=== PATIENT | female | born 1980 | race Two or more races ===

== ENCOUNTER 2024-02-26 22:06 | Inpatient (IN) | payer MEDICAID, OTHER ==
[~2024-02-26] VITALS: Ht 144.8 cm; Wt 100.9 kg
[2024-02-26] MEDS: LORazepam 2MG/ML-1ML VIAL ONE ×2 (22:17→22:30)
[2024-02-26 22:20] VITALS: PULSE 92; RESP 19; O2SAT 92
[2024-02-26] MEDS: LORazepam 2MG/ML-1ML VIAL IV ONE ×2 (22:29→22:30)
[2024-02-26] MEDS: levETIRAcetam 1000 mg/100ml 100 ML IV ONE (22:29)
[2024-02-26] MEDS: SODIUM CHLORIDE 0.9% 1,000 ML IV ONE (22:29)
[2024-02-26] MEDS: PHENYTOIN SODIUM 50 MG/ML 2ML VIAL IV ONE (22:42)
[2024-02-26] MEDS: PHENYTOIN SODIUM 50 MG/ML 5ML INJ VIAL IV ONE (22:42)
[2024-02-26 22:44] LABS: Basophils # (auto) 0.1 10 ^3/uL (0-0.2); Basophils % (auto) 0.7 % (0.0-2.0); Eosinophils # (auto) 0.1 10 ^3/uL (0-0.8); Eosinophils % (auto) 1.6 % (0.0-7.0); Hematocrit 30.4 % (36.0-46.0); Hemoglobin 9.9 g/dL (12.2-16.2); Lymphocytes % (auto) 25.5 % (10.0-50.0); Mean Corpuscular Hemoglobin 32.4 pg (28.0-32.0); Mean Corpuscular Hgb Conc. 32.4 g/dL (32.0-36.0); Mean Corpuscular Volume 99.9 fL (80.0-100.0); Monocytes # (auto) 0.5 10 ^3/uL (0-1.3); Monocytes % (auto) 5.9 % (0.0-12.0); Neutrophils # (auto) 5.1 10 ^3/uL (1.6-8.6); Neutrophils % (auto) 66.3 % (37.0-80.0); Red Blood Cells 3.04 10^6/uL (4.0-5.20); Red Cell Distribution Width 17.1 % (11.8-14.3); White Blood Cell 7.7 10^3/uL (4.4-10.8)
[2024-02-26] MEDS: PHENobarbital SODIUM 130 MG/ML VL IV ONE (23:00)
[2024-02-26] MEDS: PHENYTOIN IV DILANTIN 1,000 MG in SODIUM CHL 0.9% 250 ML IV ONE (23:00)
[2024-02-26 23:02] LABS: Alanine Aminotransferase 22 U/L (7-40); Albumin 4.5 g/dL (3.2-4.8); Alkaline Phosphatase 53 U/L (46-116); Anion Gap 10 (5-15); Aspartate Aminotransferase 25 U/L (13-40); Calcium 9.2 mg/dL (8.7-10.4); Carbon Dioxide 23 mmol/L (20-30); Chloride 104 mmol/L (98-107); Glucose 111 mg/dL (74-106); Potassium 3.2 mmol/L (3.5-5.1); Sodium 137 mmol/L (136-145)
[2024-02-26 23:03] LABS: Bilirubin, Total 0.4 mg/dL (0.2-1.0); Total Protein 7.4 g/dL (5.7-8.2)
[2024-02-26 23:05] LABS: BUN/Creatinine Ratio 5.9 (10.0-20.0); Blood Urea Nitrogen < 5 mg/dL (9-23)
[2024-02-26 23:06] LABS: INR 1.02 (0.9-1.15); Partial Thromboplastin Time < 20.0 SEC (24.5-34.5); Prothrombin Time 10.8 sec (9.3-11.8)
[2024-02-26] MEDS: PHENobarbital SODIUM 130 MG/ML VL ONE (23:27)
[2024-02-26] MEDS: PHENobarbital SODIUM 65 MG/ML VL ONE (23:27)
[2024-02-26 23:29] LABS: Urine Bacteria None Seen /hpf (None Seen)
[2024-02-26 23:36] LABS: Urine Blood Negative /uL (Negative); Urine Clarity Clear (Clear); Urine Color Colorless (Yellow); Urine Protein, UAD TRACE (Negative); Urine Specific Gravity 1.008 (1.001-1.035); Urine Urobilinogen Normal (Negative); Urine WBC 15 /hpf (0 - 5); Urine pH 6.5 (5.0-9.0)
[2024-02-27] MEDS ORDERED: LORazepam 2MG/ML-1ML VIAL IV PRN (00:45)
[2024-02-27] MEDS: cefTRIAXone 1GM/50ML D5W 50 ML IV ONE (01:26)
[2024-02-27] MEDS ORDERED: HYDROcodone-ACET 5/325MG TAB PO PRN (02:45)
[2024-02-27] MEDS ORDERED: MORPHINE SULFATE INJ 2 MG/ml SYRG IV PRN (02:45)
[2024-02-27] MEDS ORDERED: POTASSIUM CHLORIDE 40 MEQ, LIDOCAINE 1% (LOCAL ANESTH.) 4 ML in SODIUM CHL 0.9% 250 ML IV ONE (02:45)
[2024-02-27] MEDS ORDERED: DOCUSATE SOD 100 MG CAP PO PRN (02:45)
[2024-02-27] MEDS ORDERED: ONDANSETRON HCL 4 MG/2 ML VIAL IV PRN (02:45)
[2024-02-27] MEDS ORDERED: NITROGLYCERIN 0.4 MG SL TAB SL PRN (02:45)
[2024-02-27] MEDS: SODIUM CHLORIDE 0.9% 1,000 ML IV SCH (03:20)
[2024-02-27] MEDS: POTASSIUM CHL 20MEQ/100ML 100 ML IV SCH (03:21)
[2024-02-27 07:30] VITALS: PULSE 88; RESP 18; O2SAT 98
[2024-02-27] MEDS: ENOXAPARIN SOD 40 MG/0.4 ML SYRINGE SC SCH (10:10)
[2024-02-27] MEDS: levETIRAcetam 1000 mg/100ml 100 ML IV SCH (10:10)
[2024-02-27 16:14] LABS: Amphetamine Screen, Urine Neg (NEGATIVE); Barbiturate Scree,Urine Pos (NEGATIVE); Benzodiazephine Screen, Urine Pos (NEGATIVE); Cocaine Screen, Urine Neg (NEGATIVE); Opiate Scree,Urine Neg (NEGATIVE); Phencyclidine Screen, Urine Neg (NEGATIVE)
[2024-02-27 16:15] LABS: Cannabinoid Screen, Urine Neg (NEGATIVE)
[2024-02-27] MEDS: ACETAMINOPHEN 325 MG TAB PO PRN (17:15)
[2024-02-28] VITALS (7 sets, daily range): BP systolic 91–121; BP diastolic 55–68; PULSE 70–82; RESP 15–20; TEMP 97.9–99.1; O2SAT 92–100
[2024-02-28 06:34] LABS: Alanine Aminotransferase 18 U/L (7-40); Alkaline Phosphatase 56 U/L (46-116); Anion Gap 6 (5-15); Aspartate Aminotransferase 27 U/L (13-40); Bilirubin, Total 0.7 mg/dL (0.2-1.0); Calcium 8.3 mg/dL (8.5-10.1); Carbon Dioxide 27 mmol/L (20-30); Chloride 104 mmol/L (98-107); Glucose 88 mg/dL (74-106); Sodium 137 mmol/L (136-145); Total Protein 6.4 g/dL (5.7-8.2)
[2024-02-28 06:41] LABS: Basophils # (auto) 0 10 ^3/uL (0-0.2); Basophils % (auto) 0.5 % (0.0-2.0); Eosinophils # (auto) 0.1 10 ^3/uL (0-0.8); Eosinophils % (auto) 1.7 % (0.0-7.0); Hematocrit 28.1 % (36.0-46.0); Hemoglobin 9.3 g/dL (12.2-16.2); Lymphocytes # (auto) 1.3 10 ^3/uL (0.4-5.4); Lymphocytes % (auto) 16.7 % (10.0-50.0); Mean Corpuscular Hemoglobin 32.4 pg (28.0-32.0); Mean Corpuscular Hgb Conc. 33.1 g/dL (32.0-36.0); Mean Corpuscular Volume 97.7 fL (80.0-100.0); Monocytes # (auto) 0.4 10 ^3/uL (0-1.3); Monocytes % (auto) 5.6 % (0.0-12.0); Neutrophils % (auto) 75.5 % (37.0-80.0); Nucleated Red Blood Cells % 0.1 %; Red Blood Cells 2.88 10^6/uL (4.0-5.20)
[2024-02-28 06:49] LABS: BUN/Creatinine Ratio 7.5 (10.0-20.0); Blood Urea Nitrogen < 5 mg/dL (9-23)
[2024-02-29] VITALS (7 sets, daily range): BP systolic 94–125; BP diastolic 50–67; PULSE 57–76; RESP 16–19; TEMP 36.7; O2SAT 95–100
[2024-02-29] MEDS: POTASSIUM CHL 20 Meq TABLET PO ONE (10:12)
[2024-02-29] MEDS: POTASSIUM CHLORIDE 20 MEQ, LIDOCAINE 1% (LOCAL ANESTH.) 2 ML in SODIUM CHL 0.9% 100 ML IV ONE (12:12)
== END 2024-02-29 19:15 | disposition home or self-care (01) | DRG 53 ==
LOC: ER 22:06 → EDBD 22:06 → TELE 02-27 02:49 → TELE-EAST 02-27 20:24
PROVIDERS: ADMIT Nurse Practitioner Family; ATTEND Internal Medicine
DX: G40.201 Localization-related (focal) (partial) symptomatic epilepsy and epileptic syndromes with complex partial seizures, not intractable, with status epilepticus (principal); E87.6 Hypokalemia; N39.0 Urinary tract infection, site not specified; F09 Unspecified mental disorder due to known physiological condition; Z98.2 Presence of cerebrospinal fluid drainage device; Z87.820 Personal history of traumatic brain injury; Z79.899 Other long term (current) drug therapy
CPT/HCPCS: 36415; 80053; 80307; 81001; 82542; 83735; 83880; 84484; 84702; 85025; 85610; 85730; 87086; 93005; 96361; 96365; 96367; 96368; 96375; 99291; G0378; J2001; J3480

== ENCOUNTER 2024-12-26 04:48 | Inpatient (IN) | payer MEDICAID ==
[~2024-12-26] VITALS: Ht 167.6 cm; Wt 94.0 kg
[2024-12-26] VITALS (44 sets, daily range): BP systolic 84–116; BP diastolic 50–75; PULSE 75–111; RESP 14–19; TEMP 98.2–98.8; O2SAT 91–100
[2024-12-26] MEDS: SUCCINYLCHOLINE CHLORIDE 20 MG/ML 10ML VIAL IV ONE (04:55)
[2024-12-26] MEDS: ETOMIDATE (2MG/ML) 20ML VIAL IV ONE (04:55)
[2024-12-26] MEDS: PROPOFOL 100 ML IV SCH (05:00)
[2024-12-26] MEDS: LORazepam 2MG/ML-1ML VIAL IV ONE (05:32)
[2024-12-26] MEDS: levETIRAcetam 1000 mg/100ml 100 ML IV ONE (05:33)
[2024-12-26 05:37] LABS: Basophils # (auto) 0 10 ^3/uL (0-0.2); Basophils % (auto) 0.5 % (0.0-2.0); Eosinophils # (auto) 0.1 10 ^3/uL (0-0.8); Eosinophils % (auto) 1.7 % (0.0-7.0); Hematocrit 27.2 % (36.0-46.0); Hemoglobin 8.9 g/dL (12.2-16.2); Lymphocytes # (auto) 1.6 10 ^3/uL (0.4-5.4); Mean Corpuscular Hemoglobin 29.2 pg (28.0-32.0); Mean Corpuscular Hgb Conc. 32.8 g/dL (32.0-36.0); Monocytes # (auto) 0.4 10 ^3/uL (0-1.3); Monocytes % (auto) 6.6 % (0.0-12.0); Neutrophils # (auto) 3.9 10 ^3/uL (1.6-8.6); Neutrophils % (auto) 64.2 % (37.0-80.0); Nucleated Red Blood Cells % 0.1 %; Platelet Count (auto) 302 10^3/uL (140-450); Red Blood Cells 3.05 10^6/uL (4.0-5.20); Red Cell Distribution Width 20.8 % (11.8-14.3)
--- NOTE | 2024-12-26 05:46 | ED.PDOC ---
History of Present Illness HPI Comments This is a 44-year-old, obese female, with a history of seizures and TBI s/p craniotomy and HIDE STRETCHER HAND shunt placement, is BIBA for c/o seizure today. Per EMS report, patient has been seizing for the past 20 minutes, without any interruption, amidst administration of 10 mg of Versed via 20 gauge to right hand. Onset of seizure was reported by family to have been sudden unprovoked, this morning. Patient has been without her seizure medication for the past 2 days after running out. EMS notes on patient SpO2 of 80% on room air on scene. She was placed on 4 L O2, with SpO2 improvement to mid 90s range. . No further reported associated symptoms, signs of trauma, or incontinence. Further history is limited, due to patient's current condition and absence of family/sack lifter historians. Time Seen by MD: 04:48 Reviewed Notes: Nurses Notes, Senior Environmental Practice Leader Notes, Medications, Allergies Allergies: Coded Allergies: UNOBTAINABLE (Unverified , 02/26/24) Home Meds No Active Prescriptions or Reported Meds Information Source: Emergency Med Personnel Mode of Arrival: EMS Severity: Moderate Timing: Hours Duration: Minutes Prehospital treatment: 12 Lead EKG, Simplex Operator, Other (20 gauge to right hand, 10 mg Versed) Review of Systems: Unable to obtain Vital Signs Vital Signs Date Time Temp Pulse Resp B/P (MAP) Pulse Ox O2 Delivery O2 Flow Rate FiO2 12/26/24 08:31 107/69 12/26/24 08:04 98.6 87 25 100 98.6 12/26/24 07:15 Mechanical Ventilator+ 100 100 12/26/24 07:09 15 Physical Exam General: Patient is unresponsive, actively seizing Skin: Skin in warm, dry and intact without rashes or lesions. HEENT: The head is normocephalic and atraumatic. Conjunctivae are clear without exudates or hemorrhage. Sclera is non-icteric. Neck: Normal range of motion. No JVD. Cardiac: Regular rate Respiratory: No signs of respiratory distress. No Stridor. Extremities: Upper and lower extremities are atraumatic in appearance without deformity. Neurological: Patient is unresponsive, tonic-clonic like seizure activity noted Past Medical History PAST MEDICAL HISTORY: Seizures Past Medical History (Other): TBI status post craniotomy and HIDE STRETCHER HAND shunt Surgical History (Other): Craniotomy and HIDE STRETCHER HAND shunt POWER OPERATOR History: Unknown, Unobtainable Family History Family History: Unknown, Unobtainable Social History Smoker: Unknown, Unobtainable Alcohol: Unknown, Unobtainable Drugs: Unknown, Unobtainable Lives In: Home Was a procedure done? 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: Attending Physician Indication: Hypotension, Volume resuscitation Room prepared for procedure: Yes Rigging [employer] Controls Aircraft Mechanic performed hand hygien: Yes Maximal sterile barrier precau: Mask/Eye shield, Sterile gown, Sterlie gloves, Large sterlie drape Skin Preparation: Chlorhexidine gluconate Skin preparation completely dr: Yes Insertion site: Right, Femoral Central line catheter type: [id number]-gophtaym-[id number] dialysis Central line exchanged over a: Yes Antiseptic ointment applied to: Yes Post Assessment: Proper placement Informed consent obtained: No Risks/benefits/alt described: No Notes Central line placed by Dr. Taras Rodríguez Intubation Indication: Respiratory Insufficiency, Altered Mental Status Prep: Preoxygenation Pretreated with: Other (Propofol) Medicated with: Succinylcholine (100 mg), Other (20 mg of etomidate-) Differential Dx Considerations may include: Differential diagnosis considered includes but not limited to intracranial hemorrhage, stroke, head injury, seizure status/breakthrough, noncompliant with medications, metabolic disturbance, electrolyte imbalance, infection, substance intoxication, psychiatric cause, other systemic illness, other X-Ray, Labs, Meds, VS Vital Signs Date Time Temp Pulse Resp B/P (MAP) Pulse Ox O2 Delivery O2 Flow Rate FiO2 12/26/24 08:31 107/69 12/26/24 08:11 110/63 12/26/24 08:04 98.6 87 25 129/79 (96) 100 98.6 12/26/24 08:00 98.6 93 29 132/87 (102) 100 98.6 12/26/24 07:45 98.6 87 25 129/79 (96) 100 98.6 12/26/24 07:30 112/69 12/26/24 07:30 98.6 96 17 112/69 (83) 100 98.6 12/26/24 07:15 98.6 101 14 108/74 (85) 100 98.6 12/26/24 07:15 101 14 100 Mechanical Ventilator+ 100 100 12/26/24 07:12 111 16 108/65 (79) 100 100 12/26/24 07:09 111 Mechanical Ventilator+ 15 100 100 12/26/24 07:00 97 17 106/71 (83) 100 12/26/24 06:45 104 110/69 (83) 100 12/26/24 06:30 111 114/71 (85) 100 12/26/24 06:30 114/71 12/26/24 06:30 114/71 12/26/24 06:30 114/71 12/26/24 06:15 114 115/77 (90) 100 12/26/24 06:00 114 131/80 (97) 100 12/26/24 05:45 108 18 120/80 (93) 100 12/26/24 05:30 109/72 12/26/24 05:30 112 19 109/72 (84) 100 12/26/24 05:20 122/86 12/26/24 05:15 119 29 122/86 (98) 100 12/26/24 05:15 122/86 12/26/24 05:10 108/65 12/26/24 05:05 108/65 12/26/24 05:00 108/65 12/26/24 05:00 108/65 12/26/24 04:59 117 21 108/65 (79) 97 12/26/24 04:54 130 27 160/125 (137) 82 12/26/24 04:48 98.3 131 20 90/70 (77) 95 98.3 Lab Test 12/26/24 06:18 12/26/24 06:13 12/26/24 06:04 12/26/24 05:08 Range/Units Urine Color Light-yellow Yellow Urine Clarity Clear Clear Urine pH 6.0 5.0-9.0 Urine Specific [place] 1.013 1.001-1.035 Urine Protein 1+ H Negative Urine Ketones 1+ H Negative Urine Blood 1+ H Negative /uL Urine Nitrite Negative Negative Urine Bilirubin Negative Negative Urine Urobilinogen Normal Negative mg/dL Urine Leukocyte Esterase Negative Negative /uL Urine RBC 1 0 - 4 /hpf Urine Microscopic WBC 5 0-5 /HPF Urine Squamous Epithelial Cells Few <5 /hpf Urine Bacteria None seen None Seen /hpf Urine Mucus Few None Seen Urine Glucose Normal Normal mg/dL Urine Opiates Screen Neg NEGATIVE Urine Fentanyl Screen Neg NEGATIVE Urine Barbiturates Screen Neg NEGATIVE Urine Phencyclidine Screen Neg NEGATIVE Urine Amphetamines Screen Neg NEGATIVE Urine Benzodiazepines Screen Pos NEGATIVE Urine Cocaine Screen Neg NEGATIVE Urine Cannabinoids Screen Neg NEGATIVE Blood Gas Specimen Type Arterial Blood Gas Sample Site Right radial Blood Gas Patient Temperature 37.0 Arterial Blood Date Drawn [id number] Arterial Blood pH 7.454 H 7.350-7.450 Arterial Blood Partial Pressure CO2 34.0 32.0-45.0 mmHg Arterial Blood Partial Pressure O2 207.9 H 83.0-108.0 mmHg Arterial Blood HCO3 23.3 21.0-28.0 mmol/L Arterial Blood Oxygen Saturation 99.6 H 94.0-98.0 % Arterial Blood Base Excess -0.3 -2.0-3.0 mmol/L Arterial Blood Oxyhemoglobin 98.7 H 94.0-98.0 % Arterial Blood Carboxyhemoglobin 0.4 L 0.5-1.5 % Arterial Blood Methemoglobin 0.5 0.0-1.5 % [place] Test Modified Blood Gas Total Hemoglobin 9.20 L 12.0-16.0 g/dL Blood Gas Set Respiration Rate 16.0 Blood Gas Modality Vent - ac Blood Gas Spontaneous Rate 23 FiO2 % 100.0 Blood Gas Tidal Volume 450.0 Blood Gas PEEP or CPAP 5.0 Troponin I High Sensitivity 4 < 3 L </=34 ng/L White Blood Count 6.0 4.4-10.8 10^3/uL Red Blood Count 3.05 L 4.0-5.20 10^6/uL Hemoglobin 8.9 L 12.2-16.2 g/dL Hematocrit 27.2 L 36.0-46.0 % Mean Corpuscular Volume 89.0 80.0-100.0 fL Mean Corpuscular Hemoglobin 29.2 28.0-32.0 pg Mean Corpuscular Hemoglobin Concent 32.8 32.0-36.0 g/dL Red Cell Distribution Width 20.8 H 11.8-14.3 % Platelet Count 302 140-450 10^3/uL Mean Platelet Volume 7.6 6.9-10.8 fL Neutrophils (%) (Auto) 64.2 37.0-80.0 % Lymphocytes (%) (Auto) 27.0 10.0-50.0 % Monocytes (%) (Auto) 6.6 0.0-12.0 % Eosinophils (%) (Auto) 1.7 0.0-7.0 % Basophils (%) (Auto) 0.5 0.0-2.0 % Neutrophils # (Auto) 3.9 1.6-8.6 10 ^3/uL Lymphocytes # (Auto) 1.6 0.4-5.4 10 ^3/uL Monocytes # (Auto) 0.4 0-1.3 10 ^3/uL Eosinophils # (Auto) 0.1 0-0.8 10 ^3/uL Basophils # (Auto) 0 0-0.2 10 ^3/uL Nucleated Red Blood Cells 0.1 % Sodium Level 140 136-145 mmol/L Potassium Level 3.5 3.5-5.1 mmol/L Chloride Level 104 98-107 mmol/L Carbon Dioxide Level 21 20-31 mmol/L Anion Gap 15 5-15 Blood Urea Nitrogen 6 L 9-23 mg/dL Creatinine 0.82 0.550-1.02 mg/dL Glomerular Filtration Rate Calc 90 >90 mL/min BUN/Creatinine Ratio 7.3 L 10.0-20.0 Serum Glucose 93 74-106 mg/dL Calcium Level 9.4 8.7-10.4 mg/dL Total Bilirubin 0.3 0.2-1.0 mg/dL Aspartate Amino Transferase (AST) 21 13-40 U/L Alanine Aminotransferase (ALT) 19 7-40 U/L Alkaline Phosphatase 59 46-116 U/L Total Protein 7.6 5.7-8.2 g/dL Albumin 4.8 3.2-4.8 g/dL Plasma/Serum Blood Alcohol < 3.0 <10 mg/dL Current Medications Medications (Trade) Dose Ordered Sig/Parth Route Start Time Stop Time Status Last Admin Levetiracetam 100 ml @ 400 mls/hr ONCE ONCE IV 12/26/24 05:30 12/26/24 05:44 DC 12/26/24 05:33 Lorazepam (Ativan Inj) 2 mg ONCE ONCE IV 12/26/24 05:30 12/26/24 05:31 DC 12/26/24 05:32 Midazolam HCl 50 ml @ 1 mls/hr Q24H IV 12/26/24 06:00 12/26/24 08:31 Propofol 100 ml @ 2.73 mls/hr Q24H IV 12/26/24 06:00 12/26/24 08:11 Etomidate 20 mg ONCE ONCE IV 12/26/24 07:15 12/26/24 07:16 DC 12/26/24 04:55 Succinylcholine Chloride (Quelicin) 130 mg ONCE ONCE IV 12/26/24 07:15 12/26/24 07:16 DC 12/26/24 04:55 Time of 1ST Reevaluation: 05:28 Reevaluation 1ST: Unchanged Patient Education/Counseling: Other (Patient intubated) Family Education/Counseling: No Family Present Departure 1 Departure Time of Disposition: 08:35 (Patient presented in status epilepticus. Patient was intubated for airway protection central line was placed with Dr. Soler last seen. We will admit patient for further workup and expert consultation) Impression: Primary Impression: Status epilepticus Disposition: ADMITTED INPATIENT Admit to: ICU Condition: Critical e-Prescriptions No Active Prescriptions or Reported Meds Comments 44-year-old female who presented to the emergency department in status epilepticus, had received 10 mg of Versed by EMS. Patient intubated for airway protection. Keppra, additional Ativan, Versed drip initiated in the emergency department. Patient admitted to hospitalist service for further treatment, evaluation and monitoring. Extensive evaluation was performed in attempt to identify or rule out: (See differential diagnosis section) The following tests were ordered, and results were reviewed by me and discussed with patient: (See diagnostic results section) The following test were independently interpreted by me: I reviewed and agreed with the following test results read by other providers: N/A I reviewed the following notes from the pt's past medical encounters: February 27, 2024 encounter for seizure disorder Additional information was gathered from interviewing the following independent historians: N/A Discussion of management or test interpretation with external physician/other qualified health transitional care manager: N/A Addressed an acute or chronic illness that poses a threat to life or bodily function: Status epilepticus Decision regarding hospitalization or escalation of hospital level of care: Risk and benefits of admission for further treatment of patient's condition was considered. Due to patient's current clinical condition, high risk of decline and poor outcome if discharged and need for further inpatient management and monitoring, patient will be admitted to the hospital. Drug therapy requiring intensive monitoring for toxicity: IV Keppra, Parenteral controlled substances: IV Ativan, IV Versed, IV etomidate, IV succinylcholine Decision regarding elective major surgery with identified patient or procedure risk factors: N/A Decision regarding emergency major surgery: N/A Decision not to resuscitate or to de-escalate care because of poor prognosis: N/A Diagnosis or treatment significantly limited by social determinants of health: N/A Critical Care Note Critical Care Time?: Yes (35 min-critical care time only) Critical care comment: Due to a high probability of clinically significant, life threatening dete rioration, the patient required my highest level of preparedness to intervene emergently and I personally spent this critical care time directly and personally managing the patient. This critical care time included obtaining a history; examining the patient; pulse oximetry; ordering and review of studies; arranging urgent treatment with development of a management plan; evaluation of patient's response to treatment; frequent reassessment; and, discussions with other providers. This critical care time was performed to assess and manage the high probability of imminent, life-threatening deterioration that could result in multi-organ f ailure. It was exclusive of separately billable procedures and treating other patients and teaching time. Please see my other sections and the rest of the note for further information on patient assessment and treatment. Stability Stability form required: No Heart Score Heart Score: Heart Score Response (Comments) Value History N/A 0 EKG N/A 0 Age N/A 0 Risk Factors N/A 0 Troponin N/A 0 Total 0 I personally scribed for OSWALDO CROOKS MD ([email or web address]) on 12/26/24 at 05:46. Electronically submitted by Attila Hilario ([email or web address]). OSWALDO CROOKS MD December 26, 2024 05:46 TARAS RODRÍGUEZ MD December 26, 2024 08:35
[2024-12-26 05:53] LABS: Alanine Aminotransferase 19 U/L (7-40); Alkaline Phosphatase 59 U/L (46-116); Anion Gap 15 (5-15); Aspartate Aminotransferase 21 U/L (13-40); BUN/Creatinine Ratio 7.3 (10.0-20.0); Bilirubin, Total 0.3 mg/dL (0.2-1.0); Calcium 9.4 mg/dL (8.7-10.4); Carbon Dioxide 21 mmol/L (20-31); Chloride 104 mmol/L (98-107); Glucose 93 mg/dL (74-106); Potassium 3.5 mmol/L (3.5-5.1); Sodium 140 mmol/L (136-145); Total Protein 7.6 g/dL (5.7-8.2)
[2024-12-26 06:05] LABS: Albumin 4.8 g/dL (3.2-4.8); Blood Alcohol < 3.0 mg/dL (<10); Blood Urea Nitrogen 6 mg/dL (9-23)
[2024-12-26 06:19] LABS: Base Excess -0.3 mmol/L (-2.0-3.0)
[2024-12-26 06:24] LABS: Urine Bacteria None Seen /hpf (None Seen)
[2024-12-26] MEDS: MIDAZOLAM DRIP 50 mg/50mL 50 ML IV SCH (06:30)
[2024-12-26 06:32] LABS: Urine Blood 1+ /uL (Negative); Urine Clarity Clear (Clear); Urine Color Light-Yellow (Yellow); Urine Mucus FEW (None Seen); Urine Protein, UAD 1+ (Negative); Urine Specific Gravity 1.013 (1.001-1.035); Urine Squamous Epithelial Cell FEW /hpf (<5); Urine Urobilinogen Normal (Negative); Urine WBC 5 /HPF (0-5)
[2024-12-26 06:50] LABS: Amphetamine Screen, Urine Neg (NEGATIVE); Barbiturate Scree,Urine Neg (NEGATIVE); Benzodiazephine Screen, Urine Pos (NEGATIVE); Cannabinoid Screen, Urine Neg (NEGATIVE); Cocaine Screen, Urine Neg (NEGATIVE); Opiate Scree,Urine Neg (NEGATIVE); Phencyclidine Screen, Urine Neg (NEGATIVE)
[2024-12-26] MEDS: fentaNYL Drip 2500mCg/250mlNS 250 ML IV SCH (08:30)
--- NOTE | 2024-12-26 08:48 | DVH ---
EXAM: XY CHEST XRAY 1 VIEW Indication: Status post intubation Technique: Single frontal view of the chest was obtained Comparison: None FINDINGS: Lines and Tubes: Endotracheal tube projects approximately 1.7 cm above level devonte. Enteric tube tip projects over the expected region of the stomach. Lungs: Low lung volumes with interstitial opacities. Pleura: No effusion. No pneumothorax. Cardiomediastinal contours: Unremarkable Bones: No acute osseous abnormality. IMPRESSION: Endotracheal tube projects approximately 1.7 cm above level devonte. Enteric tube tip projects over th e expected region of the stomach.
--- NOTE | 2024-12-26 12:58 | DVH ---
EXAM: CT HEAD WITHOUT CONTRAST HISTORY: Seizure COMPARISON: None TECHNIQUE: Axial images of the head were obtained and reformatted in coronal and sagittal planes. All CT scans at this medical facility are performed using dose modulation techniques as appropriate t o a performed exam including the following: Automated exposure control was utilized; adjustment of th e MA and/or KV according to patient size; and use of iterative reconstruction technique. CT Dose: CTDI volume is 65 mGy. Dose-length product is 1300 mGy*cm FINDINGS: There are postsurgical changes with left frontal craniotomy. There is a ventricular shunt catheter wi th right frontal approach with the tip in the frontal horn of the right lateral ventricle. There is n o hydrocephalus or significant extra-axial fluid collection. The gliotic changes along the shunt tra ct. There is encephalomalacia in the right frontal and temporal lobes which May relate to chronic infarct . There are patchy hypodense areas in the supratentorial white matter likely related to chronic small -vessel ischemic changes. There is no evidence of acute intracranial hemorrhage, mass, mass effect midline shift. There is mild mucosal thickening in the maxillary and ethmoid sinuses. The mastoid air cells are ann marie ar. The calvarium is intact. IMPRESSION: 1. No acute intracranial process. 2. Encephalomalacia in the right frontal and temporal lobes May relate to chronic infarct. 3. Ventricular shunt catheter with the tip in the frontal horn of the right lateral ventricle. There is no hydrocephalus or significant extra-axial fluid collection. HS:Y
[2024-12-26] MEDS ORDERED: ACETAMINOPHEN 650 MG RECT SUPP PR PRN (14:30)
[2024-12-26] MEDS ORDERED: POTASSIUM CHL 20MEQ/100ML 100 ML IV ONE (14:30)
[2024-12-26] MEDS ORDERED: LORazepam 2MG/ML-1ML VIAL IV PRN (14:30)
[2024-12-26] MEDS ORDERED: ONDANSETRON HCL 4 MG/2 ML VIAL IV PRN (14:30)
--- NOTE | 2024-12-26 14:52 | DVHHP2 ---
History of Present Illness Reason for Visit: Status epilepticus History of Present Illness The patient is a 44-year-old female with past medical history of seizure and traumatic brain injury presented to [facility] ED for evaluation of seizures activity. As reported by EMS, patient has been seizing for the past 20 minutes without any interruption, desaturating on room air at 80% and was placed on oxygen 4 L per minute via nasal cannula, given 10 mg of Versed IV, O2 saturation improved to 91%. Patient has been without her seizure medication for the past 2 days after running out. Patient was seen and evaluated in the ED and was subsequently intubated for airway protection. Laboratory data shows WBC 6.0, hemoglobin 8.9, hematocrit 27.2, platelets 302, sodium 140, potassium 3.5, BUN 6, creatinine 0.82, glucose 93, troponin 9, blood pressure 103/59, heart rate 100, temperature 99.1 F, O2 saturation 98% on ventilator. Patient was started on IV Keppra, please see medication orders section in the computer. On my assessment, family member at bedside, patient remains fully intubated, no diaphoresis, no vomiting, no fever, no chills. Patient was admitted for further evaluation and medical management. Past Medical History Seizures, Traumatic brain injury Past Surgical History TBI status post craniotomy and TRANSFER TABLE OPERATOR shunt Craniotomy and TRANSFER TABLE OPERATOR shunt Family History Reviewed, noncontributory to the management of this case. Past Social History The patient lives at home, denies smoking, alcohol or illicit drugs abuse. Review of Systems Constitutional: Yes: Weakness; No: Fever, Chills, Sweats, Malaise, Other Eyes: No: Pain, Vision change, Conjunctivae inflammation, Eyelid inflammation, Other, Redness ENT: No: Ear pain, Ear discharge, Nose pain, Nose discharge, Nose congestion, Mouth pain, Mouth swelling, Throat pain, Throat swelling, Other Respiratory: No: Cough, Dry, Shortness of breath, SOB with excertion, Wheezing, Hemoptysis, Pleuritic Pain, Sputum, Wheezing, Other Cardiovascular: No: Chest Pain, Palpitations, Orthopnea, Paroxysmal Noc. Dyspnea, Edema, Lt Headedness, Other Gastrointestinal: No: Nausea, Vomiting, Abdominal Pain, Diarrhea, Constipation, Melena, Hematochezia, Other Genitourinary: No Dysuria, No Frequency, No Incontinence, No Hematuria, No Retention; Other (Morgan catheter in place) Musculoskeletal: No: other, neck pain, shoulder pain, arm pain, back pain, hand pain, leg pain, foot pain Skin: No: Rash, Lesions, Jaundice, Bruising, Other Neurological: Seizures; No: Weakness, Numbness, Incoordination, Change in speech, Confusion, Other Allergies: Coded Allergies: NO KNOWN ALLERGIES (Unverified , 12/26/24) Medications Current Medications Medications Dose Ordered Sig/Parth Route Start Time Stop Time Status Last Admin Dose Admin Midazolam HCl 50 ml @ 1 mls/hr Q24H IV 12/26/24 06:00 12/26/24 12:17 15 MLS/HR Propofol 100 ml @ 2.73 mls/hr Q24H IV 12/26/24 06:00 12/26/24 11:01 27.3 MLS/HR Fentanyl Citrate 250 ml @ 2.5 mls/hr Q24H IV 12/26/24 08:30 Levetiracetam 100 ml @ 400 mls/hr BID IV 12/26/24 22:00 Lorazepam 1 mg Q2HP PRN IV 12/26/24 14:30 Sodium Chloride 10 ml Q8HR IV 12/26/24 22:00 Ondansetron HCl 4 mg Q4HP PRN IV 12/26/24 14:30 Acetaminophen 650 mg Q6HP PRN MA 12/26/24 14:30 Exam Vital Signs Vital Signs Date Time Temp Pulse Resp B/P (MAP) Pulse Ox O2 Delivery O2 Flow Rate FiO2 12/26/24 12:17 100/60 12/26/24 12:00 99.1 104 19 98 99.1 12/26/24 10:05 40 12/26/24 07:15 Mechanical Ventilator+ 12/26/24 07:09 15 General Appearance: Other (Altered level of consciousness) HEENT: Atraumatic, PERRLA, EOMI, Mucous membr. moist/pink Respiratory: Normal air movement, Other (Fully intubated) Cardiovascular: Regular rate, Normal S1, Normal S2, No murmurs Abdominal: Normal bowel sounds, Soft, No tenderness, No hepatospenomegaly, No masses Extremities: No clubbing, No cyanosis, No edema, Normal pulses, No tenderness/swelling Skin: No rashes, No breakdown, No significant lesion Neuro: Other (Altered level of consciousness) Psych/Mental Status: Other (Unobtainable) Labs/Xrays Labs Test 12/26/24 08:40 12/26/24 06:18 12/26/24 06:13 12/26/24 05:08 Range/Units Troponin I High Sensitivity 9 </=34 ng/L Urine Color Light-yellow Yellow Urine Clarity Clear Clear Urine pH 6.0 5.0-9.0 Urine Specific [place] 1.013 1.001-1.035 Urine Protein 1+ H Negative Urine Ketones 1+ H Negative Urine Blood 1+ H Negative /uL Urine Nitrite Negative Negative Urine Bilirubin Negative Negative Urine Urobilinogen Normal Negative mg/dL Urine Leukocyte Esterase Negative Negative /uL Urine RBC 1 0 - 4 /hpf Urine Microscopic WBC 5 0-5 /HPF Urine Squamous Epithelial Cells Few <5 /hpf Urine Bacteria None seen None Seen /hpf Urine Mucus Few None Seen Urine Glucose Normal Normal mg/dL Urine Opiates Screen Neg NEGATIVE Urine Fentanyl Screen Neg NEGATIVE Urine Barbiturates Screen Neg NEGATIVE Urine Phencyclidine Screen Neg NEGATIVE Urine Amphetamines Screen Neg NEGATIVE Urine Benzodiazepines Screen Pos NEGATIVE Urine Cocaine Screen Neg NEGATIVE Urine Cannabinoids Screen Neg NEGATIVE Blood Gas Specimen Type Arterial Blood Gas Sample Site Right radial Blood Gas Patient Temperature 37.0 Arterial Blood Date Drawn [id number] Arterial Blood pH 7.454 H 7.350-7.450 Arterial Blood Partial Pressure CO2 34.0 32.0-45.0 mmHg Arterial Blood Partial Pressure O2 207.9 H 83.0-108.0 mmHg Arterial Blood HCO3 23.3 21.0-28.0 mmol/L Arterial Blood Oxygen Saturation 99.6 H 94.0-98.0 % Arterial Blood Base Excess -0.3 -2.0-3.0 mmol/L Arterial Blood Oxyhemoglobin 98.7 H 94.0-98.0 % Arterial Blood Carboxyhemoglobin 0.4 L 0.5-1.5 % Arterial Blood Methemoglobin 0.5 0.0-1.5 % Edmond Test Modified Blood Gas Total Hemoglobin 9.20 L 12.0-16.0 g/dL Blood Gas Set Respiration Rate 16.0 Blood Gas Modality Vent - ac Blood Gas Spontaneous Rate 23 FiO2 % 100.0 Blood Gas Tidal Volume 450.0 Blood Gas PEEP or CPAP 5.0 White Blood Count 6.0 4.4-10.8 10^3/uL Red Blood Count 3.05 L 4.0-5.20 10^6/uL Hemoglobin 8.9 L 12.2-16.2 g/dL Hematocrit 27.2 L 36.0-46.0 % Mean Corpuscular Volume 89.0 80.0-100.0 fL Mean Corpuscular Hemoglobin 29.2 28.0-32.0 pg Mean Corpuscular Hemoglobin Concent 32.8 32.0-36.0 g/dL Red Cell Distribution Width 20.8 H 11.8-14.3 % Platelet Count 302 140-450 10^3/uL Mean Platelet Volume 7.6 6.9-10.8 fL Neutrophils (%) (Auto) 64.2 37.0-80.0 % Lymphocytes (%) (Auto) 27.0 10.0-50.0 % Monocytes (%) (Auto) 6.6 0.0-12.0 % Eosinophils (%) (Auto) 1.7 0.0-7.0 % Basophils (%) (Auto) 0.5 0.0-2.0 % Neutrophils # (Auto) 3.9 1.6-8.6 10 ^3/uL Lymphocytes # (Auto) 1.6 0.4-5.4 10 ^3/uL Monocytes # (Auto) 0.4 0-1.3 10 ^3/uL Eosinophils # (Auto) 0.1 0-0.8 10 ^3/uL Basophils # (Auto) 0 0-0.2 10 ^3/uL Nucleated Red Blood Cells 0.1 % Sodium Level 140 136-145 mmol/L Potassium Level 3.5 3.5-5.1 mmol/L Chloride Level 104 98-107 mmol/L Carbon Dioxide Level 21 20-31 mmol/L Anion Gap 15 5-15 Blood Urea Nitrogen 6 L 9-23 mg/dL Creatinine 0.82 0.550-1.02 mg/dL Glomerular Filtration Rate Calc 90 >90 mL/min BUN/Creatinine Ratio 7.3 L 10.0-20.0 Serum Glucose 93 74-106 mg/dL Calcium Level 9.4 8.7-10.4 mg/dL Total Bilirubin 0.3 0.2-1.0 mg/dL Aspartate Amino Transferase (AST) 21 13-40 U/L Alanine Aminotransferase (ALT) 19 7-40 U/L Alkaline Phosphatase 59 46-116 U/L Total Protein 7.6 5.7-8.2 g/dL Albumin 4.8 3.2-4.8 g/dL Plasma/Serum Blood Alcohol < 3.0 <10 mg/dL PATIENT: BAYRON DILLARD ACCT: [id number] UNIT: [id number] : 1980 LOC: ER ROOM / BED: / AGE / SEX: 44 / F ADM STATUS: REG ER SERVICE 3 ORDERING PHYSICIAN: OSWALDO CROOKS MD PROCEDURE(s): HWOCT - HEAD WITHOUT CONTRAST REASON: Seizure ORDER NUMBER(s): [id number], ACCESSION NUMBER(s): [id number] EXAM: CT HEAD WITHOUT CONTRAST HISTORY: Seizure COMPARISON: None TECHNIQUE: Axial images of the head were obtained and reformatted in coronal and sagittal planes. All CT scans at this medical facility are performed using dose modulation techniques as appropriate to a performed exam including the following: Automated exposure control was utilized; adjustment of the MA and/or KV according to patient size; and use of iterative reconstruction technique. CT Dose: CTDI volume is 65 mGy. Dose-length product is 1300 mGy*cm FINDINGS: There are postsurgical changes with left frontal craniotomy. There is a ventricular shunt catheter with right frontal approach with the tip in the frontal horn of the right lateral ventricle. There is no hydrocephalus or significant extra-axial fluid collection. The gliotic changes along the shunt tract. There is encephalomalacia in the right frontal and temporal lobes which May relate to chronic infarct. There are patchy hypodense areas in the supratentorial white matter likely related to chronic small-vessel ischemic changes. There is no evidence of acute intracranial hemorrhage, mass, mass effect midline shift. There is mild mucosal thickening in the maxillary and ethmoid sinuses. The mastoid air cells are clear. The calvarium is intact. IMPRESSION: 1. No acute intracranial process. 2. Encephalomalacia in the right frontal and temporal lobes May relate to chronic infarct. 3. Ventricular shunt catheter with the tip in the frontal horn of the right lateral ventricle. There is no hydrocephalus or significant extra-axial fluid collection. ORDERING PHYSICIAN: OSWALDO CROOKS MD PROCEDURE(s): CXR1 - CHEST XRAY 1 VIEW REASON: Status post intubation ORDER NUMBER(s): [id number], ACCESSION NUMBER(s): [id number] EXAM: XY CHEST XRAY 1 VIEW Indication: Status post intubation Technique: Single frontal view of the chest was obtained Comparison: None FINDINGS: Lines and Tubes: Endotracheal tube projects approximately 1.7 cm above level devonte. Enteric tube tip projects over the expected region of the stomach. Lungs: Low lung volumes with interstitial opacities. Pleura: No effusion. No pneumothorax. Cardiomediastinal contours: Unremarkable Bones: No acute osseous abnormality. IMPRESSION: Endotracheal tube projects approximately 1.7 cm above level devonte. Enteric tube tip projects over the expected region of the stomach. Assessment/Plan Assessment/Plan Status epilepticus Generalized weakness Anemia, unspecified Acute respiratory failure Plan 1. Admit to intensive care unit 2. Breathing treatment 3. Pain control management 4. Management of fluids and electrolytes 5. Consultation for Neurology 6. Diagnostic tests head CT 7. DVT prophylaxis-on SCDs 8. Repeat labs CBC, CMP in a.m. 9. Continue with current medical management 10. Treatment plan discussed with patient and RN. Patient verbalized understanding. Plan discussed with: Patient, Other (RN) My Orders Orders - MICHELLE CAPONE DNP Procedure Category Date Status Time * Neurology Consult CONS 12/26/24 Transmitted 14:24 Levetiracetam 500 PHA 12/26/24 In Process Mg/100ml (Levetiraceta 22:00 Lorazepam 2mg/Ml Inj PHA 12/26/24 In Process (Ativan Inj) 14:30 Allergies USHA 12/26/24 Transmitted 14:24 Code Status CODE 12/26/24 Transmitted 14:24 Sodium Chloride Lock PHA 12/26/24 In Process (Saline Lock Ns) 22:00 Oxygen Per Hour RT 12/26/24 Transmitted 14:24 Ondansetron Hcl PHA 12/26/24 In Process (Zofran) 14:30 Fall Risk Precautions USHA 12/26/[address] 14:24 Complete Blood Count LAB 12/27/24 Verified 04:00 Comprehensive LAB 12/27/24 Verified Metabolic Panel 04:00 Npo (Nothing By DIET 12/26/24 Transmitted Mouth) Diet Dinner Condition: Serious USHA 12/26/24 In Process 14:24 Maintain Bed Rest USHA 12/26/24 In Process 14:24 Sequential USHA 12/26/24 In Process Compression Device Acetaminophen PHA 12/26/24 In Process Suppository (Tylenol 14:30 Potassium Chl PHA 12/26/24 In Process 20meq/50ml (Potassium 14:45 Admit ADMIT 12/26/24 Verified 14:50 Nitroglycerin PHA 12/26/24 Verified Sublingual (Ntrostat 15:00 Morphine Sulfate PHA 12/26/24 Verified Injection 15:00 Problem List: (1) Status epilepticus (2) Anemia, unspecified (3) Generalized weakness (4) Acute respiratory distress Date of Service: December 26, 2024 Billing Provider: MICHELLE CAPONE DNP Common Visit Codes: [id number] INP/OBS CARE (HIGH) MICHELLE CAPONE DNP December 26, 2024 14:51
[2024-12-26] MEDS ORDERED: NITROGLYCERIN 0.4 MG SL TAB SL PRN (15:00)
[2024-12-26] MEDS ORDERED: MORPHINE SULFATE INJ 2 MG/ml SYRG IV PRN (15:00)
[2024-12-26] MEDS: POTASSIUM CHL 20MEQ/50ML 50 ML IV ONE (16:20)
[2024-12-26] MEDS ORDERED: LEVE500T3 PO (16:27)
[2024-12-26] MEDS: NOREPINEPHRINE 8 MG/250ML KIT 250 ML IV SCH (17:21)
[2024-12-26] MEDS: levETIRAcetam 500 mg/100ml 100 ML IV SCH (21:37)
[2024-12-26] MEDS: SODIUM CHLOR 0.9% PF (SALINE LOCK) 10ML VIAL/SYR IV SCH (21:37)
[2024-12-27] VITALS (107 sets, daily range): BP systolic 86–117; BP diastolic 48–76; PULSE 75–92; RESP 10–25; TEMP 94.8–99.3; O2SAT 90–100
[2024-12-27 04:13] LABS: Basophils # (auto) 0.1 10 ^3/uL (0-0.2); Basophils % (auto) 0.8 % (0.0-2.0); Eosinophils # (auto) 0.2 10 ^3/uL (0-0.8); Eosinophils % (auto) 1.9 % (0.0-7.0); Hematocrit 29.3 % (36.0-46.0); Hemoglobin 9.5 g/dL (12.2-16.2); Lymphocytes # (auto) 1.2 10 ^3/uL (0.4-5.4); Mean Corpuscular Hemoglobin 29.1 pg (28.0-32.0); Mean Corpuscular Hgb Conc. 32.4 g/dL (32.0-36.0); Mean Corpuscular Volume 89.6 fL (80.0-100.0); Monocytes # (auto) 0.9 10 ^3/uL (0-1.3); Monocytes % (auto) 8.2 % (0.0-12.0); Neutrophils # (auto) 8.6 10 ^3/uL (1.6-8.6); Neutrophils % (auto) 78.1 % (37.0-80.0); Nucleated Red Blood Cells % 0.3 %; Platelet Count (auto) 260 10^3/uL (140-450); Red Blood Cells 3.28 10^6/uL (4.0-5.20); Red Cell Distribution Width 21.2 % (11.8-14.3); White Blood Cell 11.1 10^3/uL (4.4-10.8)
[2024-12-27 04:32] LABS: Alanine Aminotransferase 15 U/L (7-40); Albumin 4.2 g/dL (3.2-4.8); Alkaline Phosphatase 61 U/L (46-116); Anion Gap 11 (5-15); Aspartate Aminotransferase 22 U/L (13-40); Bilirubin, Total 0.6 mg/dL (0.2-1.0); Calcium 9.1 mg/dL (8.7-10.4); Carbon Dioxide 24 mmol/L (20-31); Sodium 143 mmol/L (136-145); Total Protein 6.9 g/dL (5.7-8.2)
[2024-12-27 04:42] LABS: BUN/Creatinine Ratio 7.9 (10.0-20.0); Blood Urea Nitrogen < 5 mg/dL (9-23); Chloride 108 mmol/L (98-107); Glucose 113 mg/dL (74-106); Potassium 3.4 mmol/L (3.5-5.1)
--- NOTE | 2024-12-27 05:14 | DVH ---
EXAM: XR Chest, 1 View CLINICAL INDICATION: INTUBATED TECHNIQUE: Frontal view of the chest. COMPARISON: XY CHEST XRAY 1 VIEW on DOS: 12/26/24 FINDINGS: LUNGS AND PLEURAL SPACES: Left basilar atelectasis or pneumonia. No pneumothorax. HEART: Unremarkable. No cardiomegaly. MEDIASTINUM: Unremarkable. Normal mediastinal contour. BONES/JOINTS: Unremarkable. No acute fracture. TUBES, LINES AND DEVICES: The endotracheal tube (ETT) is in satisfactory position. Enteric tube ti p in the stomach. OTHER FINDINGS: . . . IMPRESSION: Left basilar atelectasis or pneumonia.
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
[2024-12-27 09:37] LABS: Base Excess -0.3 mmol/L (-2.0-3.0)
--- NOTE | 2024-12-27 10:36 | DVHPN2 ---
Subjective Patient was intubated and chemically sedated. Reviewed: Care Plan, H&P, Labs, Medications Changes from previous H/P or p: No Changes General: Per HPI Eyes: No Pain, No Vision change, No Conjunctivae inflammation, No Eyelid inflammation, No Other, No Redness ENT: No Ear pain, No Ear discharge, No Nose pain, No Nose discharge, No Nose congestion, No Mouth pain, No Mouth swelling, No Throat pain, No Throat swelling, No Other Cardiovascular: No Chest Pain, No Palpitations, No Orthopnea, No Paroxysmal Noc. Dyspnea, No Edema, No Lt Headedness, No Other Respiratory: No Cough, No Dry, No Shortness of breath, No SOB with excertion, No Wheezing, No Hemoptysis, No Pleuritic Pain, No Sputum, No Other Gastrointestinal: No Nausea, No Vomiting, No Abdominal Pain, No Diarrhea, No Constipation, No Melena, No Hematochezia, No Other Genitourinary: No Dysuria, No Frequency, No Incontinence, No Hematuria, No Retention; Other (Morgan catheter in place) Musculoskeletal: No other, No neck pain, No shoulder pain, No arm pain, No back pain, No hand pain, No leg pain, No foot pain Skin: No Rash, No Lesions, No Jaundice, No Bruising, No Other Objective Vitals Vital Signs Date Time Temp Pulse Resp B/P (MAP) Pulse Ox O2 Delivery O2 Flow Rate FiO2 12/27/24 09:26 94/58 12/27/24 08:24 84 16 99 30 12/27/24 07:15 98.8 209.8 12/27/24 06:00 Mechanical Ventilator+ 12/26/24 07:09 15 Intake/Output Intake and Output 12/27/24 07:00 Intake Total 1260.50 ml Output Total 2500 ml Balance -1239.50 ml Intake Oral 0 ml IV Total 1260.50 ml Output Urine Total 2500 ml General Appearance: Other (Chemically sedated) HEENT: Atraumatic, PERRLA Lungs: Clear to auscultation, Normal air movement, Other (Mechanical ventilation) Cardiovascular: Normal S1, Normal S2 Musculoskeletal: Other (Response to painful stimuli) Psych/Mental Status: Other (Unable to assess) Medications Current Medications Medications Dose Ordered Sig/Parth Route Start Time Stop Time Status Last Admin Dose Admin Midazolam HCl 50 ml @ 1 mls/hr Q24H IV 12/26/24 06:00 12/27/24 07:18 12 MLS/HR Propofol 100 ml @ 2.73 mls/hr Q24H IV 12/26/24 06:00 12/27/24 09:26 27.3 MLS/HR Fentanyl Citrate 250 ml @ 2.5 mls/hr Q24H IV 12/26/24 08:30 Levetiracetam 100 ml @ 400 mls/hr BID IV 12/26/24 22:00 12/27/24 09:21 400 MLS/HR Lorazepam 1 mg Q2HP PRN IV 12/26/24 14:30 Sodium Chloride 10 ml Q8HR IV 12/26/24 22:00 12/27/24 06:05 10 ML Ondansetron HCl 4 mg Q4HP PRN IV 12/26/24 14:30 Acetaminophen 650 mg Q6HP PRN DE 12/26/24 14:30 Nitroglycerin 0.4 mg Q5MINP PRN SL 12/26/24 15:00 Morphine Sulfate 2 mg Q30M PRN IV 12/26/24 15:00 Norepinephrine Bitartrate 250 ml @ 3.75 mls/hr Q24H IV 12/26/24 17:15 12/26/24 17:21 3.75 MLS/HR Laboratory Results Laboratory Tests 12/27/24 03:14 Chemistry Test 12/27/24 03:14 Albumin 4.2 g/dL (3.2-4.8) Calcium Level 9.1 mg/dL (8.7-10.4) Total Protein 6.9 g/dL (5.7-8.2) LFT Test 12/27/24 03:14 Alanine Aminotransferase (ALT) 15 U/L (7-40) Alkaline Phosphatase 61 U/L (46-116) Aspartate Amino Transferase (AST) 22 U/L (13-40) Total Bilirubin 0.6 mg/dL (0.2-1.0) Urinalysis Test 12/26/24 06:18 Urine Color Light-yellow (Yellow) Urine Clarity Clear (Clear) Urine pH 6.0 (5.0-9.0) Urine Specific [place] 1.013 (1.001-1.035) Urine Protein 1+ (Negative) H Urine Ketones 1+ (Negative) H Urine Blood 1+ /uL (Negative) H Urine Nitrite Negative (Negative) Urine Bilirubin Negative (Negative) Urine Urobilinogen Normal mg/dL (Negative) Urine Leukocyte Esterase Negative /uL (Negative) Urine RBC 1 /hpf (0 - 4) Urine Microscopic WBC 5 /HPF (0-5) Urine Squamous Epithelial Cells Few /hpf (<5) Urine Bacteria None seen /hpf (None Seen) Urine Mucus Few (None Seen) Urine Glucose Normal mg/dL (Normal) Blood Gas Results Test 12/27/24 07:07 Arterial Blood pH 7.446 (7.350-7.450) FiO2 % 30.0 Labs and/or images reviewed: Labs reviewed by me, Image(s) reviewed by me Assessment/Plan Assessment/Plan Impression: -breakthrough seizures -history of traumatic brain injury with hydrocephalus and placement of WEB PRESS ROLL TENDER shunt -history of seizure disorder -obesity -acute hypoxic respiratory failure -left lower lung atelectasis -probable sirs response without organ dysfunction -normocytic anemia -hypokalemia -hypothyroidism Plan: -neurology consultation: Recommendations reviewed. EEG pending -start trickle feeding -potassium replacement with gentle IV hydration -PUD, DVT prophylaxis -continue current ventilator settings -continue Keppra per Neurology -continue current sedation -bronchodilators -repeat labs, chest x-ray, ABG in a.m. -plan for spontaneous breathing trial in a.m. if EEG is negative for signs of seizure activity Critical care time spent with patient discussing and formulating plan of care: 40 minutes. This does not include time spent performing procedures. This medical document was created using an electronic medical record system with [employer] dictation system. Although this document has been carefully reviewed, there may still be some phonetic and typographical errors. These areas are purely typographical due to imperfections of the software programs, and do not reflect any compromise in the patient's medical care. Plan discussed with: Patient, Other (RN) My Orders Orders - CLAU DIEGO NP Procedure Category Date Status Time Ns W Potassium 40meq PHA 12/27/24 Transmitted 10:30 Pantoprazole PHA 12/27/24 Transmitted (Protonix) 10:30 Enoxaparin Sodium PHA 12/27/24 Transmitted (Lovenox) 10:30 Thyroid Stimulating LAB 12/28/24 Verified Hormone 04:00 Levothyroxine PHA 5/7/25 Transmitted Injection (Synthroid 10:00 Date of Service: December 27, 2024 Billing Provider: CLAU DIEGO NP Common Visit Codes: 59556-[id number] CARE 30-74 MIN CLAU DIEGO NP December 27, 2024 10:36
[2024-12-27] MEDS: PANTOPRAZOLE 40 MG/10 ML VIAL INJ IV SCH (11:24)
[2024-12-27] MEDS: ENOXAPARIN SOD 40 MG/0.4 ML SYRINGE SC SCH (11:25)
[2024-12-27] MEDS: levETIRAcetam 1000 mg/100ml 100 ML IV ONE (11:25)
[2024-12-27] MEDS: SOD CHL 0.9%/ KCL 40MEQ 1,000 ML IV ONE (11:26)
[2024-12-27] MEDS: Jevity 1.2 Cal/Fiber 1 Liter GT SCH (15:52)
[2024-12-28] VITALS (103 sets, daily range): BP systolic 92–117; BP diastolic 28–77; PULSE 73–111; RESP 11–24; TEMP 92.3–100; O2SAT 89–100
--- NOTE | 2024-12-28 00:42 | DVHEEG2 ---
Neurology EEG Procedural Note Procedural Note EXAM DATE: 12/27/2024 REFERRING DOCTOR: Dr. Rockwell TECHNIQUE: Eighteen channels of EEG, 2 channels of EOG, and 1 channel of EKG were recorded using the International 10/20 system. CLINICAL DATA: The patient was referred for an EEG evaluation for the evidence of seizure disorder. MEDICATIONS: See the chart BACKGROUND ACTIVITY: There was significant amount of electrode artifacts in the recording. The EEG showed diffuse low amplitude theta activity with intervals of relatively suppressed background activity ACTIVATION: Hyperventilation: Not done Photic Stimulation: Not done Sleep: Unresponsiveness IMPRESSION: This is a remarkably abnormal EEG, this EEG seen in severe cerebral dysfunction due to metabolic/hypoxic encephalopathy or medication effects, please correlate clinically The EKG channel showed a regular heart rate of 78/[place] [address] PATTI ROCKWELL MD December 28, 2024 00:42
[2024-12-28 06:58] LABS: Base Excess -0.9 mmol/L (-2.0-3.0)
[2024-12-28 08:28] LABS: Sodium 143 mmol/L (136-145)
[2024-12-28 08:29] LABS: Anion Gap 10 (5-15); Basophils # (auto) 0 10 ^3/uL (0-0.2); Basophils % (auto) 0.4 % (0.0-2.0); Carbon Dioxide 23 mmol/L (20-31); Eosinophils # (auto) 0.1 10 ^3/uL (0-0.8); Eosinophils % (auto) 1.6 % (0.0-7.0); Hematocrit 27.3 % (36.0-46.0); Hemoglobin 8.9 g/dL (12.2-16.2); Lymphocytes # (auto) 0.9 10 ^3/uL (0.4-5.4); Lymphocytes % (auto) 9.3 % (10.0-50.0); Mean Corpuscular Hgb Conc. 32.6 g/dL (32.0-36.0); Monocytes # (auto) 0.5 10 ^3/uL (0-1.3); Monocytes % (auto) 4.9 % (0.0-12.0); Neutrophils # (auto) 7.8 10 ^3/uL (1.6-8.6); Neutrophils % (auto) 83.8 % (37.0-80.0); Platelet Count (auto) 237 10^3/uL (140-450); Red Blood Cells 3.07 10^6/uL (4.0-5.20); Red Cell Distribution Width 21.3 % (11.8-14.3); White Blood Cell 9.3 10^3/uL (4.4-10.8)
[2024-12-28 08:34] LABS: Glucose 100 mg/dL (74-106)
[2024-12-28 08:38] LABS: BUN/Creatinine Ratio 8.5 (10.0-20.0); Blood Urea Nitrogen < 5 mg/dL (9-23); Calcium 8.4 mg/dL (8.7-10.4); Chloride 110 mmol/L (98-107); Potassium 3.5 mmol/L (3.5-5.1)
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
--- NOTE | 2024-12-28 09:37 | DVHPN2 ---
Subjective Patient was intubated and chemically sedated. Reviewed: Care Plan, H&P, Labs, Medications Changes from previous H/P or p: No Changes General: Per HPI Eyes: No Pain, No Vision change, No Conjunctivae inflammation, No Eyelid inflammation, No Other, No Redness ENT: No Ear pain, No Ear discharge, No Nose pain, No Nose discharge, No Nose congestion, No Mouth pain, No Mouth swelling, No Throat pain, No Throat swelling, No Other Cardiovascular: No Chest Pain, No Palpitations, No Orthopnea, No Paroxysmal Noc. Dyspnea, No Edema, No Lt Headedness, No Other Respiratory: No Cough, No Dry, No Shortness of breath, No SOB with excertion, No Wheezing, No Hemoptysis, No Pleuritic Pain, No Sputum, No Other Gastrointestinal: No Nausea, No Vomiting, No Abdominal Pain, No Diarrhea, No Constipation, No Melena, No Hematochezia, No Other Genitourinary: No Dysuria, No Frequency, No Incontinence, No Hematuria, No Retention; Other (Morgan catheter in place) Musculoskeletal: No other, No neck pain, No shoulder pain, No arm pain, No back pain, No hand pain, No leg pain, No foot pain Skin: No Rash, No Lesions, No Jaundice, No Bruising, No Other Objective Vitals Vital Signs Date Time Temp Pulse Resp B/P (MAP) Pulse Ox O2 Delivery O2 Flow Rate FiO2 12/28/24 07:37 79 19 98/65 (76) 99 30 12/28/24 05:52 Mechanical Ventilator+ 12/28/24 05:45 99.0 210.2 12/26/24 07:09 15 Intake/Output Intake and Output 12/28/24 07:00 Intake Total 2174.66 ml Output Total 1300 ml Balance 874.66 ml IV Total 2024.66 ml Tube Feeding 150 ml Output Urine Total 1300 ml General Appearance: Other (Chemically sedated) HEENT: Atraumatic, PERRLA Lungs: Clear to auscultation, Normal air movement, Other (Mechanical ventilation) Cardiovascular: Normal S1, Normal S2 Musculoskeletal: Other (Response to painful stimuli) Skin: Dry, Intact Psych/Mental Status: Other (Unable to assess) Medications Current Medications Medications Dose Ordered Sig/Parth Route Start Time Stop Time Status Last Admin Dose Admin Midazolam HCl 50 ml @ 1 mls/hr Q24H IV 12/26/24 06:00 12/28/24 06:43 11 MLS/HR Propofol 100 ml @ 2.73 mls/hr Q24H IV 12/26/24 06:00 12/28/24 06:43 13.65 MLS/HR Fentanyl Citrate 250 ml @ 2.5 mls/hr Q24H IV 12/26/24 08:30 Levetiracetam 100 ml @ 400 mls/hr BID IV 12/26/24 22:00 12/27/24 22:00 400 MLS/HR Lorazepam 1 mg Q2HP PRN IV 12/26/24 14:30 Sodium Chloride 10 ml Q8HR IV 12/26/24 22:00 12/28/24 05:58 10 ML Ondansetron HCl 4 mg Q4HP PRN IV 12/26/24 14:30 Acetaminophen 650 mg Q6HP PRN IA 12/26/24 14:30 Nitroglycerin 0.4 mg Q5MINP PRN SL 12/26/24 15:00 Morphine Sulfate 2 mg Q30M PRN IV 12/26/24 15:00 Norepinephrine Bitartrate 250 ml @ 3.75 mls/hr Q24H IV 12/26/24 17:15 12/27/24 15:50 11.25 MLS/HR Pantoprazole Sodium 40 mg DAILY IV 12/27/24 10:30 12/27/24 11:24 40 MG Enoxaparin Sodium 40 mg DAILY SC 12/27/24 10:30 12/27/24 11:25 40 MG Enteral Nutritional Formula 1,000 ml 30ML/HR GT 12/27/24 10:30 12/27/24 15:52 1,000 ML Levothyroxine Sodium 100 mcg DAILY IV 12/28/24 10:00 Laboratory Results Laboratory Tests 12/28/24 03:26 Chemistry Test 12/28/24 03:26 Calcium Level 8.4 mg/dL (8.7-10.4) L HgA1c, TSH Test 12/28/24 03:00 Thyroid Stimulating Hormone (TSH) 41.39 uIU/mL (0.55-4.78) H Urinalysis Test 12/26/24 06:18 Urine Color Light-yellow (Yellow) Urine Clarity Clear (Clear) Urine pH 6.0 (5.0-9.0) Urine Specific [place] 1.013 (1.001-1.035) Urine Protein 1+ (Negative) H Urine Ketones 1+ (Negative) H Urine Blood 1+ /uL (Negative) H Urine Nitrite Negative (Negative) Urine Bilirubin Negative (Negative) Urine Urobilinogen Normal mg/dL (Negative) Urine Leukocyte Esterase Negative /uL (Negative) Urine RBC 1 /hpf (0 - 4) Urine Microscopic WBC 5 /HPF (0-5) Urine Squamous Epithelial Cells Few /hpf (<5) Urine Bacteria None seen /hpf (None Seen) Urine Mucus Few (None Seen) Urine Glucose Normal mg/dL (Normal) Blood Gas Results Test 12/28/24 06:50 Arterial Blood pH 7.436 (7.350-7.450) FiO2 % 30.0 Microbiology Microbiology Date/Time Source Procedure Growth Status 12/26/24 20:10 Nose MRSA Screen - Final Complete 12/26/24 10:45 Sputum Gram Stain - Final Resulted 12/26/24 10:45 Sputum Respiratory Culture - Preliminary Resulted Labs and/or images reviewed: Labs reviewed by me, Image(s) reviewed by me Assessment/Plan Assessment/Plan Impression: -breakthrough seizures -history of traumatic brain injury with hydrocephalus and 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 Potassium repleted. Hemodynamically stable. Plans for spontaneous breathing trial. Discussed case with primary nurse to weaned sedation. -neurology consultation: Recommendations reviewed. -start trickle feeding -potassium replacement with gentle IV hydration -PUD, DVT prophylaxis -continue current ventilator settings -continue Keppra per Neurology -sedation vacation. Restart sedation if patient has signs of seizure activity. -increase levothyroxine 100 mcg IV daily -bronchodilators -repeat labs in a.m. -long discussion made with the patient's who was bedside. All questions answered. Critical care time spent with patient discussing and formulating plan of care: 90 minutes. This does not include time spent performing procedures. This medical document was created using an electronic medical record system with [employer] system. Although this document has been carefully reviewed, there may still be some phonetic and typographical errors. These areas are purely typographical due to imperfections of the software programs, and do not reflect any compromise in the patient's medical care. Plan discussed with: Patient, Spouse, Other (RN) My Orders Orders - CLAU DIEGO NP Procedure Category Date Status Time Pantoprazole PHA 12/27/24 In Process (Protonix) 10:30 Enoxaparin Sodium PHA 12/27/24 In Process (Lovenox) 10:30 Nutritional PHA 12/27/24 In Process Supplements (Jevity 10:30 Abg W/ Co-Ox RT 12/28/24 Logged 06:00 Levothyroxine PHA 12/28/24 In Process Injection (Synthroid 10:00 Cpap/Sed Vacation Med ORDERS 12/28/24 Transmitted Weaning 08:09 Cpap Trial For Am ORDERS 12/28/24 Transmitted 08:09 Basic Metabolic Panel LAB 12/29/24 Verified 04:00 Magnesium LAB 12/29/24 Verified 04:00 Date of Service: December 28, 2024 Billing Provider: CLAU DIEGO NP Common Visit Codes: [id number] CARE 30-74 MIN, [id number] CARE-EACH +30MIN CLAU DIEGO NP December 28, 2024 09:37
[2024-12-28] MEDS ORDERED: LEVOTHYROXINE SODIUM 100 MCG/5 ML INJ IV SCH (10:00)
[2024-12-28] MEDS: LEVOTHYROXINE SODIUM 100 MCG/5 ML INJ IV SCH (10:17)
[2024-12-29] VITALS (82 sets, daily range): BP systolic 74–130; BP diastolic 40–74; PULSE 67–99; RESP 10–24; TEMP 95.2–99.7; O2SAT 94–100
[2024-12-29] MEDS: DEXMEDETOMIDINE HCL IN D5W 100 ML IV SCH (02:21)
[2024-12-29 04:00] LABS: Anion Gap 9 (5-15); Carbon Dioxide 26 mmol/L (20-31); Chloride 107 mmol/L (98-107); Sodium 142 mmol/L (136-145)
[2024-12-29 04:04] LABS: Calcium 8.5 mg/dL (8.7-10.4); Potassium 3.1 mmol/L (3.5-5.1)
[2024-12-29 04:06] LABS: Glucose 104 mg/dL (74-106)
[2024-12-29 04:07] LABS: Magnesium 2.2 mg/dL (1.6-2.6)
[2024-12-29 04:39] LABS: BUN/Creatinine Ratio 9.1 (10.0-20.0); Blood Urea Nitrogen < 5 mg/dL (9-23)
[2024-12-29] MEDS: POTASSIUM CHL 20MEQ/50ML 50 ML IV ONE (05:28)
[2024-12-29] MEDS: SODIUM CHL 0.9% 100 ML IV ONE (05:29)
[2024-12-29 07:39] LABS: Base Excess 1.4 mmol/L (-2.0-3.0)
--- NOTE | 2024-12-29 09:42 | DVHPN2 ---
Subjective Patient was intubated and chemically sedated. Reviewed: Care Plan, H&P, Labs, Medications Changes from previous H/P or p: No Changes General: Per HPI Eyes: No Pain, No Vision change, No Conjunctivae inflammation, No Eyelid inflammation, No Other, No Redness ENT: No Ear pain, No Ear discharge, No Nose pain, No Nose discharge, No Nose congestion, No Mouth pain, No Mouth swelling, No Throat pain, No Throat swelling, No Other Cardiovascular: No Chest Pain, No Palpitations, No Orthopnea, No Paroxysmal Noc. Dyspnea, No Edema, No Lt Headedness, No Other Respiratory: No Cough, No Dry, No Shortness of breath, No SOB with excertion, No Wheezing, No Hemoptysis, No Pleuritic Pain, No Sputum, No Other Gastrointestinal: No Nausea, No Vomiting, No Abdominal Pain, No Diarrhea, No Constipation, No Melena, No Hematochezia, No Other Genitourinary: No Dysuria, No Frequency, No Incontinence, No Hematuria, No Retention; Other (Morgan catheter in place) Musculoskeletal: No other, No neck pain, No shoulder pain, No arm pain, No back pain, No hand pain, No leg pain, No foot pain Skin: No Rash, No Lesions, No Jaundice, No Bruising, No Other Objective Vitals Vital Signs Date Time Temp Pulse Resp B/P (MAP) Pulse Ox O2 Delivery O2 Flow Rate FiO2 12/29/24 08:40 98 12/29/24 08:37 13 12/29/24 08:36 10.0 12/29/24 08:00 99.1 96 106/70 (82) 210.4 12/29/24 08:00 Mechanical Ventilator+ 30 30 Intake/Output Intake and Output 12/29/24 07:00 Intake Total 312.80 ml Output Total 900 ml Balance -587.20 ml Intake Oral 0 ml IV Total 212.80 ml Tube Feeding 100 ml Output Urine Total 900 ml Stool Total 0 ml General Appearance: Other (Chemically sedated) HEENT: Atraumatic, PERRLA Lungs: Clear to auscultation, Normal air movement, Other (Mechanical ventilation) Cardiovascular: Normal S1, Normal S2 Musculoskeletal: Other (Response to painful stimuli) Skin: Dry, Intact Psych/Mental Status: Other (Unable to assess) Medications Current Medications Medications Dose Ordered Sig/Parth Route Start Time Stop Time Status Last Admin Dose Admin Midazolam HCl 50 ml @ 1 mls/hr Q24H IV 12/26/24 06:00 12/28/24 06:43 11 MLS/HR Levetiracetam 100 ml @ 400 mls/hr BID IV 12/26/24 22:00 12/28/24 21:56 400 MLS/HR Lorazepam 1 mg Q2HP PRN IV 12/26/24 14:30 Sodium Chloride 10 ml Q8HR IV 12/26/24 22:00 12/29/24 05:29 10 ML Ondansetron HCl 4 mg Q4HP PRN IV 12/26/24 14:30 Acetaminophen 650 mg Q6HP PRN W[place] 12/26/24 14:30 Nitroglycerin 0.4 mg Q5MINP PRN SL 12/26/24 15:00 Norepinephrine Bitartrate 250 ml @ 3.75 mls/hr Q24H IV 12/26/24 17:15 12/29/24 03:01 3.75 MLS/HR Pantoprazole Sodium 40 mg DAILY IV 12/27/24 10:30 12/28/24 10:17 40 MG Enoxaparin Sodium 40 mg DAILY SC 12/27/24 10:30 12/28/24 10:18 40 MG Enteral Nutritional Formula 1,000 ml 30ML/HR GT 12/27/24 10:30 12/27/24 15:52 1,000 ML Levothyroxine Sodium 100 mcg DAILY IV 12/28/24 10:00 12/28/24 10:17 100 MCG Potassium Chloride 50 ml @ 25 mls/hr Q2H IV 12/29/24 09:00 12/29/24 12:59 Laboratory Results Laboratory Tests 12/28/24 03:26 12/29/24 02:53 Chemistry Test 12/29/24 02:53 Calcium Level 8.5 mg/dL (8.7-10.4) L Magnesium Level 2.2 mg/dL (1.6-2.6) Urinalysis Test 12/26/24 06:18 Urine Color Light-yellow (Yellow) Urine Clarity Clear (Clear) Urine pH 6.0 (5.0-9.0) Urine Specific [place] 1.013 (1.001-1.035) Urine Protein 1+ (Negative) H Urine Ketones 1+ (Negative) H Urine Blood 1+ /uL (Negative) H Urine Nitrite Negative (Negative) Urine Bilirubin Negative (Negative) Urine Urobilinogen Normal mg/dL (Negative) Urine Leukocyte Esterase Negative /uL (Negative) Urine RBC 1 /hpf (0 - 4) Urine Microscopic WBC 5 /HPF (0-5) Urine Squamous Epithelial Cells Few /hpf (<5) Urine Bacteria None seen /hpf (None Seen) Urine Mucus Few (None Seen) Urine Glucose Normal mg/dL (Normal) Blood Gas Results Test 12/29/24 07:32 Arterial Blood pH 7.462 (7.350-7.450) FiO2 % 30.0 Microbiology Microbiology Date/Time Source Procedure Growth Status 12/26/24 20:10 Nose MRSA Screen - Final Complete 12/26/24 10:45 Sputum Gram Stain - Final Resulted 12/26/24 10:45 Sputum Respiratory Culture - Preliminary Resulted Labs and/or images reviewed: Labs reviewed by me, Image(s) reviewed by me Assessment/Plan Assessment/Plan Impression: -breakthrough seizures -history of traumatic brain injury with hydrocephalus and 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 Patient extubated. Continues to have hypokalemia. IV replete ordered. -neurology consultation: Recommendations reviewed. -PUD, DVT prophylaxis -continue Keppra per Neurology -continue levothyroxine 100 mcg IV daily -bronchodilators -repeat labs in a.m. Critical care time spent with patient discussing and formulating plan of care: 40 minutes. This does not include time spent performing procedures. This medical document was created using an electronic medical record system with [employer] dictation system. Although this document has been carefully reviewed, there may still be some phonetic and typographical errors. These areas are purely typographical due to imperfections of the software programs, and do not reflect any compromise in the patient's medical care. Plan discussed with: Patient, Other (RN) My Orders Orders - CLAU DIEGO SPECIALTY PERSON Procedure Category Date Status Time Dexmedetomidine Hcl PHA 12/29/24 In Process In D5w (Precedex) 02:00 Potassium Chl PHA 12/29/24 In Process 20meq/50ml (Potassium 09:00 Ventilator Orders RT 12/29/24 Transmitted 08:45 Date of Service: December 29, 2024 Billing Provider: CLAU DIEGO NP Common Visit Codes: [id number] CARE 30-74 MIN CLAU DIEGO NP December 29, 2024 09:42
[2024-12-29] MEDS: POTASSIUM CHL 20MEQ/50ML 50 ML IV SCH (09:49)
--- NOTE | 2024-12-29 10:18 | DVHPN2 ---
Progress Note - Dictate Date Seen: December 29, 2024 Medical Necessity Reason Pt with a Central, PICC or Fol: Yes The following are medically ne: Morgan Catheter Subjective is a 44 years old right-handed female with a history of hypothyroidism, traumatic brain injury/status post craniotomy, she came to the [facility] on 12/27/24 with a chief complaint of seizure activity. At this time, she is intubated, sedated, only responds to stroke painful stimuli, the history is obtained from her I saw her on 02/28/2024 for seizure disorder I have seen and examined the patient, I have discussed with her nurse, and other medical staff, she is doing fine, extubated, alert and oriented x3, but is not a good historian Urinalysis, 12/26/2024: No UTI UDS, 12/26/2024: Benzo Plasma alcohol, 12/26/2024: Normal WBC/HB/PLT/MCV, 12/27/2024: 11.1/9.5/260/89.6 CMP, 12/27/2024: Unremarkable EEG, 12/26/24: Remarkably abnormal EEG CT head, 02/27/2024: 1. Old left craniotomy defect. 2. 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 3. Ventriculostomy tube as described, cannot assess for shunt malfunction without prior studies for comparison. 4. Mild probable chronic ischemic change in periventricular white matter. 5. Mild maxillary and ethmoid chronic sinusitis 6. No evidence of acute intracranial pathology identified on this noncontrast CT. Recommend comparison with prior studies one such studies become available. Consider follow-up MRI as clinically indicated. CT head, 12/26/2024: 1. No acute intracranial process. 2. Encephalomalacia in the right frontal and temporal lobes May relate to chronic infarct. 3. Ventricular shunt catheter with the tip in the frontal horn of the right lateral ventricle. There is no hydrocephalus or significant extra-axial fluid collection vital signs Vital Sign Date Time Temp Pulse Resp B/P (MAP) Pulse Ox O2 Delivery O2 Flow Rate FiO2 12/29/24 08:40 98 12/29/24 08:37 13 12/29/24 08:36 10.0 12/29/24 08:00 99.1 96 106/70 (82) 210.4 12/29/24 08:00 Mechanical Ventilator+ 30 30 Total Intake and Output 12/28/24 12/28/24 12/29/24 15:00 23:00 07:00 Intake Total 43.68 ml 269.12 ml Output Total 550 ml 350 ml Balance -506.32 ml -80.88 ml medications Current Medications Medications Dose Ordered Sig/Parth Route Start Time Stop Time Status Last Admin Dose Admin Midazolam HCl 50 ml @ 1 mls/hr Q24H IV 12/26/24 06:00 12/28/24 06:43 11 MLS/HR Levetiracetam 100 ml @ 400 mls/hr BID IV 12/26/24 22:00 12/28/24 21:56 400 MLS/HR Lorazepam 1 mg Q2HP PRN IV 12/26/24 14:30 Sodium Chloride 10 ml Q8HR IV 12/26/24 22:00 12/29/24 05:29 10 ML Ondansetron HCl 4 mg Q4HP PRN IV 12/26/24 14:30 Acetaminophen 650 mg Q6HP PRN [place] 12/26/24 14:30 Nitroglycerin 0.4 mg Q5MINP PRN SL 12/26/24 15:00 Norepinephrine Bitartrate 250 ml @ 3.75 mls/hr Q24H IV 12/26/24 17:15 12/29/24 03:01 3.75 MLS/HR Pantoprazole Sodium 40 mg DAILY IV 12/27/24 10:30 12/28/24 10:17 40 MG Enoxaparin Sodium 40 mg DAILY SC 12/27/24 10:30 12/28/24 10:18 40 MG Enteral Nutritional Formula 1,000 ml 30ML/HR GT 12/27/24 10:30 12/27/24 15:52 1,000 ML Levothyroxine Sodium 100 mcg DAILY IV 12/28/24 10:00 12/28/24 10:17 100 MCG Potassium Chloride 50 ml @ 25 mls/hr Q2H IV 12/29/24 09:00 12/29/24 12:59 objective The patient is well-nourished and well-developed with no distress. MENTAL STATUS: Subjective CRANIAL NERVES: Pupils are equal round and reactive to light briskly, normal external eye movement, normal sensation and motor examination in the lateral trigeminal nerve distribution, no facial weakness. SENSATION: Responses to touch MOTOR: Normal tone in the upper and lower extremity. Normal muscle bulk. No fasciculations. She moves the arms and legs REFLEXES: Deep tendon reflexes are symmetrical. No pathological reflexes. CEREBELLAR/COORDINATION: Deferred GAIT/STATION: deferred laboratory and microbiology Laboratory Tests 12/29/24 02:53 12/28/24 03:26 Test 12/29/24 02:53 Range/Units Serum Glucose 104 74-106 mg/dL Problem List Seizure breakthrough Status epileptics Grand mal seizure Acute respiratory failure Traumatic brain injury status post craniotomy Hydrocephalus status post FABRICATION ENGINEER shunt Mild chronic organic brain syndrome Assessment/Plan Monitoring Supportive treatment ICU care Oxygen Keppra 500 mg b.i.d. Ativan for seizure breakthrough DVT prophylaxis/SCD Follow with her doctor on discharge This medical document was created using an electronic medical record system with [employer] dictation system. Although this document has been carefully reviewed, there may still be some phonetic and typographical errors. These areas are purely typographical due to imperfections of the software programs, and do not reflect any compromise in the patient's medical care. Prognosis Poor Dietary Evaluation Review Comments: 1. Recommend formula Vital AF 1.2 @ 50 ml/hr (GOAL). Begin at 10 ml/hr; advance by 10 ml Q4 hrs or as tolerated to goal-rate of 50 ml/hr x 24 hrs 2. Provide free water flushes of 30 ml Q6 hrs (120 ml total); adjust PRN 3. Monitor BMP/lytes and replete to WNL TF Provision: TF at goal to provide 1200 ml total volume, 1440 kcal (+158 kcal via propofol = 1598 kcal), 90 gm pro, 6 gm fiber, 973 ml H20 (meets 100% est. kcal needs, 100% est. pro needs) Expected Outcomes/Goals: Improved nutritional status. Plan discussed with: Other PATTI ROCKWELL MD December 29, 2024 10:18
[2024-12-29 14:32] LABS: Potassium 3.7 mmol/L (3.5-5.1)
[2024-12-29 14:39] LABS: Magnesium 2.2 mg/dL (1.6-2.6)
[2024-12-30] VITALS (27 sets, daily range): BP systolic 17–113; BP diastolic 51–67; PULSE 69–88; RESP 12–21; TEMP 98.1–99.1; O2SAT 88–100
--- NOTE | 2024-12-30 09:12 | DVHPN2 ---
Subjective Patient denies any symptoms Reviewed: Care Plan, H&P, Labs, Medications Changes from previous H/P or p: No Changes General: Per HPI Eyes: No Pain, No Vision change, No Conjunctivae inflammation, No Eyelid inflammation, No Other, No Redness ENT: No Ear pain, No Ear discharge, No Nose pain, No Nose discharge, No Nose congestion, No Mouth pain, No Mouth swelling, No Throat pain, No Throat swelling, No Other Cardiovascular: No Chest Pain, No Palpitations, No Orthopnea, No Paroxysmal Noc. Dyspnea, No Edema, No Lt Headedness, No Other Respiratory: No Cough, No Dry, No Shortness of breath, No SOB with excertion, No Wheezing, No Hemoptysis, No Pleuritic Pain, No Sputum, No Other Gastrointestinal: No Nausea, No Vomiting, No Abdominal Pain, No Diarrhea, No Constipation, No Melena, No Hematochezia, No Other Genitourinary: No Dysuria, No Frequency, No Incontinence, No Hematuria, No Retention; Other (Morgan catheter in place) Musculoskeletal: No other, No neck pain, No shoulder pain, No arm pain, No back pain, No hand pain, No leg pain, No foot pain Skin: No Rash, No Lesions, No Jaundice, No Bruising, No Other Objective Vitals Vital Signs Date Time Temp Pulse Resp B/P (MAP) Pulse Ox O2 Delivery O2 Flow Rate FiO2 12/30/24 08:45 77 16 97 12/30/24 08:00 99.1 99.1 12/30/24 08:00 Nasal Cannula* 2 28 Intake/Output Intake and Output 12/30/24 07:00 Intake Total 180 ml Output Total 1300 ml Balance -1120 ml Intake Oral 80 ml IV Total 100 ml Output Urine Total 1300 ml General Appearance: Alert, Oriented X3, Cooperative, Other (Chemically sedated) HEENT: Atraumatic, PERRLA Lungs: Clear to auscultation, Normal air movement, Other (Mechanical ventilation) Cardiovascular: Normal S1, Normal S2 Musculoskeletal: Other (Response to painful stimuli) Skin: Dry, Intact Psych/Mental Status: Other (Unable to assess) Medications Current Medications Medications Dose Ordered Sig/Parth Route Start Time Stop Time Status Last Admin Dose Admin Midazolam HCl 50 ml @ 1 mls/hr Q24H IV 12/26/24 06:00 12/28/24 06:43 11 MLS/HR Levetiracetam 100 ml @ 400 mls/hr BID IV 12/26/24 22:00 12/29/24 22:12 400 MLS/HR Lorazepam 1 mg Q2HP PRN IV 12/26/24 14:30 Sodium Chloride 10 ml Q8HR IV 12/26/24 22:00 12/30/24 06:00 10 ML Ondansetron HCl 4 mg Q4HP PRN IV 12/26/24 14:30 Acetaminophen 650 mg Q6HP PRN [place] 12/26/24 14:30 Nitroglycerin 0.4 mg Q5MINP PRN SL 12/26/24 15:00 Norepinephrine Bitartrate 250 ml @ 3.75 mls/hr Q24H IV 12/26/24 17:15 12/29/24 03:01 3.75 MLS/HR Pantoprazole Sodium 40 mg DAILY IV 12/27/24 10:30 12/29/24 09:48 40 MG Enoxaparin Sodium 40 mg DAILY SC 12/27/24 10:30 12/29/24 09:48 40 MG Enteral Nutritional Formula 1,000 ml 30ML/HR GT 12/27/24 10:30 12/27/24 15:52 1,000 ML Levothyroxine Sodium 100 mcg DAILY IV 12/28/24 10:00 12/29/24 09:48 100 MCG Laboratory Results Laboratory Tests 12/28/24 03:26 12/29/24 02:53 12/29/24 14:04 Chemistry Test 12/29/24 14:04 Magnesium Level 2.2 mg/dL (1.6-2.6) Urinalysis Test 12/26/24 06:18 Urine Color Light-yellow (Yellow) Urine Clarity Clear (Clear) Urine pH 6.0 (5.0-9.0) Urine Specific [place] 1.013 (1.001-1.035) Urine Protein 1+ (Negative) H Urine Ketones 1+ (Negative) H Urine Blood 1+ /uL (Negative) H Urine Nitrite Negative (Negative) Urine Bilirubin Negative (Negative) Urine Urobilinogen Normal mg/dL (Negative) Urine Leukocyte Esterase Negative /uL (Negative) Urine RBC 1 /hpf (0 - 4) Urine Microscopic WBC 5 /HPF (0-5) Urine Squamous Epithelial Cells Few /hpf (<5) Urine Bacteria None seen /hpf (None Seen) Urine Mucus Few (None Seen) Urine Glucose Normal mg/dL (Normal) Microbiology Microbiology Date/Time Source Procedure Growth Status 12/26/24 20:10 Nose MRSA Screen - Final Complete 12/26/24 10:45 Sputum Gram Stain - Final Complete 12/26/24 10:45 Sputum Respiratory Culture - Final Complete Assessment/Plan Assessment/Plan Impression: -breakthrough seizures -history of traumatic brain injury with hydrocephalus 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 -advance diet as tolerated -physical therapy -transferred to telemetry floor -neurology consultation: Recommendations reviewed. -PUD, DVT prophylaxis -continue Keppra per Neurology -continue levothyroxine 100 mcg IV daily -bronchodilators -repeat labs in a.m. Total time spent with patient discussing and formulating plan of care: 35 minutes. This medical document was created using an electronic medical record system with [employer] dictation system. Although this document has been carefully reviewed, there may still be some phonetic and typographical errors. These areas are purely typographical due to imperfections of the software programs, and do not reflect any compromise in the patient's medical care. Plan discussed with: Patient, Other (RN) My Orders Orders - CLAU DIEGO NP Procedure Category Date Status Time Advance Diet As USHA 12/29/24 In Process Tolerated 09:35 Date of Service: December 30, 2024 Billing Provider: CLAU DIEGO NP Common Visit Codes: [id number] INP/OBS CARE(HIGH) CLAU DIEGO NP December 30, 2024 09:12
[2024-12-31] VITALS (8 sets, daily range): BP systolic 91–103; BP diastolic 48–62; PULSE 53–76; RESP 16–20; TEMP 98–98.5; O2SAT 95–99
[2024-12-31 08:13] LABS: Anion Gap 8 (5-15); Carbon Dioxide 28 mmol/L (20-31); Chloride 107 mmol/L (98-107); Sodium 143 mmol/L (136-145)
[2024-12-31 08:17] LABS: Potassium 3.1 mmol/L (3.5-5.1)
[2024-12-31 08:19] LABS: Glucose 94 mg/dL (74-106)
[2024-12-31 08:27] LABS: BUN/Creatinine Ratio 8.6 (10.0-20.0); Blood Urea Nitrogen < 5 mg/dL (9-23)
--- NOTE | 2024-12-31 21:38 | DVHPN2 ---
Progress Note - Dictate Date Seen: December 31, 2024 Medical Necessity Reason Pt with a Central, PICC or Fol: Yes The following are medically ne: Morgan Catheter Subjective is a 44 years old right-handed female with a history of hypothyroidism, traumatic brain injury/status post craniotomy, she came to the [facility] on 12/27/24 with a chief complaint of seizure activity. At this time, she is intubated, sedated, only responds to stroke painful stimuli, the history is obtained from her I saw her on 02/28/2024 for seizure disorder I have seen and examined the patient, I have discussed with her nurse, she is doing fine, extubated, alert and oriented x3, no seizure activity or other complaints Urinalysis, 12/26/2024: No UTI UDS, 12/26/2024: Benzo Plasma alcohol, 12/26/2024: Normal WBC/HB/PLT/MCV, 12/27/2024: 11.1/9.5/260/89.6 CMP, 12/27/2024: Unremarkable EEG, 12/26/24: Remarkably abnormal EEG CT head, 02/27/2024: 1. Old left craniotomy defect. 2. 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 3. Ventriculostomy tube as described, cannot assess for shunt malfunction without prior studies for comparison. 4. Mild probable chronic ischemic change in periventricular white matter. 5. Mild maxillary and ethmoid chronic sinusitis 6. No evidence of acute intracranial pathology identified on this noncontrast CT. Recommend comparison with prior studies one such studies become available. Consider follow-up MRI as clinically indicated. CT head, 12/26/2024: 1. No acute intracranial process. 2. Encephalomalacia in the right frontal and temporal lobes May relate to chronic infarct. 3. Ventricular shunt catheter with the tip in the frontal horn of the right lateral ventricle. There is no hydrocephalus or significant extra-axial fluid collection vital signs Vital Sign Date Time Temp Pulse Resp B/P (MAP) Pulse Ox O2 Delivery O2 Flow Rate FiO2 12/31/24 20:00 75 Nasal Cannula* 2 28 12/31/24 16:59 98.5 18 98/62 (74) 95 98.5 Total Intake and Output 12/30/24 12/30/24 12/31/24 15:00 23:00 07:00 Intake Total 1200 ml Output Total 975 ml Balance -975 ml 1200 ml medications Current Medications Medications Dose Ordered Sig/Parth Route Start Time Stop Time Status Last Admin Dose Admin Levetiracetam 100 ml @ 400 mls/hr BID IV 12/26/24 22:00 12/31/24 09:59 400 MLS/HR Lorazepam 1 mg Q2HP PRN IV 12/26/24 14:30 Sodium Chloride 10 ml Q8HR IV 12/26/24 22:00 12/31/24 14:03 10 ML Ondansetron HCl 4 mg Q4HP PRN IV 12/26/24 14:30 Acetaminophen 650 mg Q6HP PRN [place] 12/26/24 14:30 Nitroglycerin 0.4 mg Q5MINP PRN SL 12/26/24 15:00 Pantoprazole Sodium 40 mg DAILY IV 12/27/24 10:30 12/31/24 09:59 40 MG Enoxaparin Sodium 40 mg DAILY SC 12/27/24 10:30 12/31/24 09:59 40 MG Levothyroxine Sodium 100 mcg DAILY IV 12/28/24 10:00 12/31/24 09:59 100 MCG objective The patient is well-nourished and well-developed with no distress. MENTAL STATUS: Subjective CRANIAL NERVES: Pupils are equal round and reactive to light briskly, normal external eye movement, normal sensation and motor examination in the lateral trigeminal nerve distribution, no facial weakness. SENSATION: Responses to touch MOTOR: Normal tone in the upper and lower extremity. Normal muscle bulk. No fasciculations. She moves the arms and legs REFLEXES: Deep tendon reflexes are symmetrical. No pathological reflexes. 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 Ativan for seizure breakthrough DVT prophylaxis/SCD Follow with her doctor on discharge This medical document was created using an electronic medical record system with [employer] dictation system. Although this document has been carefully reviewed, there may still be some phonetic and typographical errors. These areas are purely typographical due to imperfections of the software programs, and do not reflect any compromise in the patient's medical care. Prognosis poor Dietary Evaluation Review Comments: 1. Recommend formula Vital AF 1.2 @ 50 ml/hr (GOAL). Begin at 10 ml/hr; advance by 10 ml Q4 hrs or as tolerated to goal-rate of 50 ml/hr x 24 hrs 2. Provide free water flushes of 30 ml Q6 hrs (120 ml total); adjust PRN 3. Monitor BMP/lytes and replete to WNL TF Provision: TF at goal to provide 1200 ml total volume, 1440 kcal (+158 kcal via propofol = 1598 kcal), 90 gm pro, 6 gm fiber, 973 ml H20 (meets 100% est. kcal needs, 100% est. pro needs) Expected Outcomes/Goals: Improved nutritional status. Plan discussed with: Patient, Other PATTI ROCKWELL MD December 31, 2024 21:38
--- NOTE | 2024-12-31 23:08 | DVHPN2 ---
Subjective The patient is seen and examined at bedside. Remained weak. Have tried to work with physical therapy. More alert awake today. Reviewed: Care Plan, H&P, Labs, Medications Changes from previous H/P or p: No Changes General: Per HPI Eyes: No Pain, No Vision change, No Conjunctivae inflammation, No Eyelid inflammation, No Other, No Redness ENT: No Ear pain, No Ear discharge, No Nose pain, No Nose discharge, No Nose congestion, No Mouth pain, No Mouth swelling, No Throat pain, No Throat swelling, No Other Cardiovascular: No Chest Pain, No Palpitations, No Orthopnea, No Paroxysmal Noc. Dyspnea, No Edema, No Lt Headedness, No Other Respiratory: No Cough, No Dry, No Shortness of breath, No SOB with excertion, No Wheezing, No Hemoptysis, No Pleuritic Pain, No Sputum, No Other Gastrointestinal: No Nausea, No Vomiting, No Abdominal Pain, No Diarrhea, No Constipation, No Melena, No Hematochezia, No Other Genitourinary: No Dysuria, No Frequency, No Incontinence, No Hematuria, No Retention; Other (Morgan catheter in place) Musculoskeletal: No other, No neck pain, No shoulder pain, No arm pain, No back pain, No hand pain, No leg pain, No foot pain Skin: No Rash, No Lesions, No Jaundice, No Bruising, No Other Objective Vitals Vital Signs Date Time Temp Pulse Resp B/P (MAP) Pulse Ox O2 Delivery O2 Flow Rate FiO2 12/31/24 20:00 75 Nasal Cannula* 2 28 12/31/24 16:59 98.5 18 98/62 (74) 95 98.5 Intake/Output Intake and Output 12/31/24 07:00 Intake Total 1200 ml Output Total 975 ml Balance 225 ml Intake Oral 1200 ml Output Urine Total 975 ml # Voids 3 General Appearance: Alert, Oriented X3, Cooperative, Other (Chemically sedated) HEENT: Atraumatic, PERRLA Lungs: Clear to auscultation, Normal air movement, Other (Mechanical ventilation) Cardiovascular: Normal S1, Normal S2 Musculoskeletal: Other (Response to painful stimuli) Skin: Dry, Intact Psych/Mental Status: Other (Unable to assess) Medications Current Medications Medications Dose Ordered Sig/Parth Route Start Time Stop Time Status Last Admin Dose Admin Levetiracetam 100 ml @ 400 mls/hr BID IV 5/5/25 22:00 12/31/24 21:23 400 MLS/HR Lorazepam 1 mg Q2HP PRN IV 12/26/24 14:30 Sodium Chloride 10 ml Q8HR IV 12/26/24 22:00 12/31/24 21:30 10 ML Ondansetron HCl 4 mg Q4HP PRN IV 12/26/24 14:30 Acetaminophen 650 mg Q6HP PRN NV 12/26/24 14:30 Nitroglycerin 0.4 mg Q5MINP PRN SL 12/26/24 15:00 Pantoprazole Sodium 40 mg DAILY IV 12/27/24 10:30 12/31/24 09:59 40 MG Enoxaparin Sodium 40 mg DAILY SC 12/27/24 10:30 12/31/24 09:59 40 MG Levothyroxine Sodium 100 mcg DAILY IV 12/28/24 10:00 12/31/24 09:59 100 MCG Laboratory Results Laboratory Tests 12/28/24 03:26 12/31/24 06:48 Chemistry Test 12/31/24 06:48 Calcium Level 9.0 mg/dL (8.7-10.4) Urinalysis Test 12/26/24 06:18 Urine Color Light-yellow (Yellow) Urine Clarity Clear (Clear) Urine pH 6.0 (5.0-9.0) Urine Specific [place] 1.013 (1.001-1.035) Urine Protein 1+ (Negative) H Urine Ketones 1+ (Negative) H Urine Blood 1+ /uL (Negative) H Urine Nitrite Negative (Negative) Urine Bilirubin Negative (Negative) Urine Urobilinogen Normal mg/dL (Negative) Urine Leukocyte Esterase Negative /uL (Negative) Urine RBC 1 /hpf (0 - 4) Urine Microscopic WBC 5 /HPF (0-5) Urine Squamous Epithelial Cells Few /hpf (<5) Urine Bacteria None seen /hpf (None Seen) Urine Mucus Few (None Seen) Urine Glucose Normal mg/dL (Normal) Microbiology Microbiology Date/Time Source Procedure Growth Status 12/26/24 20:10 Nose MRSA Screen - Final Complete 12/26/24 10:45 Sputum Gram Stain - Final Complete 12/26/24 10:45 Sputum Respiratory Culture - Final Complete Labs and/or images reviewed: Labs reviewed by me Assessment/Plan Assessment/Plan -breakthrough seizures -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 Continuing with Ed[facility]. Appreciate Neurology input. Continuing to replace electrolytes . This medical document was created using an electronic medical record system with [employer] direct computerized dictation system. Although this document has been carefully reviewed, there may still be some phonetic and typographical errors. These areas are purely typographical due to imperfections of the software programs, and do not reflect any compromise in the patient's medical care. Plan discussed with: Patient, Other (mother) Date of Service: December 31, 2024 Billing Provider: MAYA HUBBARD MD Common Visit Codes: [id number] INP/OBS CARE(HIGH) MAYA HUBBARD MD December 31, 2024 23:08
[2025-01-01 01:00] VITALS: BP 95/57; PULSE 66; RESP 20; TEMP 98.7; O2SAT 99
[2025-01-01 05:00] VITALS: BP 105/61; PULSE 67; RESP 18; TEMP 98.3; O2SAT 98
[2025-01-01 08:00] VITALS: PULSE 69
[2025-01-01 09:00] VITALS: BP 96/58; PULSE 67; RESP 17; TEMP 98; O2SAT 96
[2025-01-01] MEDS ORDERED: LEVE500T3 PO (12:48)
--- NOTE | 2025-01-01 12:48 | DVHDS2 ---
Discharge Summary Date of Admission December 26, 2024 at 14:50 Date of Discharge: January 01, 2025 Admitting Diagnosis -breakthrough seizures -history of traumatic brain injury with hydrocephalus and placement of MUD TRUCKER shunt -history of seizure disorder -obesity -acute hypoxic respiratory failure -left lower lung atelectasis -probable sirs response without organ dysfunction -normocytic anemia -hypokalemia -hypothyroidism Labs/Diagnostic Data: Laboratory Results Test 12/31/24 09:47 12/31/24 06:48 12/29/24 14:04 12/29/24 07:32 POC Glucose 131 mg/dl (70-106) Sodium Level 143 mmol/L (136-145) Potassium Level 3.1 mmol/L (3.5-5.1) Chloride Level 107 mmol/L (98-107) Carbon Dioxide Level 28 mmol/L (20-31) Anion Gap 8 (5-15) Blood Urea Nitrogen < 5 mg/dL (9-23) Creatinine 0.58 mg/dL (0.550-1.02) Glomerular Filtration Rate Calc 114 mL/min (>90) BUN/Creatinine Ratio 8.6 (10.0-20.0) Serum Glucose 94 mg/dL (74-106) Calcium Level 9.0 mg/dL (8.7-10.4) Magnesium Level 2.2 mg/dL (1.6-2.6) Blood Gas Specimen Type Arterial Blood Gas Sample Site Right radial Blood Gas Patient Temperature 37.0 Arterial Blood Date Drawn [id number] Arterial Blood pH 7.462 (7.350-7.450) Arterial Blood Partial Pressure CO2 36.0 mmHg (32.0-45.0) Arterial Blood Partial Pressure O2 81.7 mmHg (83.0-108.0) Arterial Blood HCO3 25.1 mmol/L (21.0-28.0) Arterial Blood Oxygen Saturation 95.5 % (94.0-98.0) Arterial Blood Base Excess 1.4 mmol/L (-2.0-3.0) Arterial Blood Oxyhemoglobin 94.9 % (94.0-98.0) Arterial Blood Carboxyhemoglobin 0.3 % (0.5-1.5) Arterial Blood Methemoglobin 0.3 % (0.0-1.5) [place] Test Modified Blood Gas Total Hemoglobin 9.60 g/dL (12.0-16.0) Blood Gas Modality Vent - cpap Blood Gas Spontaneous Rate 13 FiO2 % 30.0 Blood Gas Spontaneous Tidal Volume 705 Blood Gas Inspiratory Pressure 13.0 Blood Gas PEEP or CPAP 5.0 Bl Gas Inspiratory/Expiratory Ratio 1:2.6 Specimen Drawn By nunu rt Test 12/28/24 06:50 12/28/24 03:26 12/28/24 03:00 12/27/24 03:14 Blood Gas Set Respiration Rate 16.0 Blood Gas Tidal Volume 450.0 White Blood Count 9.3 10^3/uL (4.4-10.8) Red Blood Count 3.07 10^6/uL (4.0-5.20) Hemoglobin 8.9 g/dL (12.2-16.2) Hematocrit 27.3 % (36.0-46.0) Mean Corpuscular Volume 89.0 fL (80.0-100.0) Mean Corpuscular Hemoglobin 29.0 pg (28.0-32.0) Mean Corpuscular Hemoglobin Concent 32.6 g/dL (32.0-36.0) Red Cell Distribution Width 21.3 % (11.8-14.3) Platelet Count 237 10^3/uL (140-450) Mean Platelet Volume 8.1 fL (6.9-10.8) Neutrophils (%) (Auto) 83.8 % (37.0-80.0) Lymphocytes (%) (Auto) 9.3 % (10.0-50.0) Monocytes (%) (Auto) 4.9 % (0.0-12.0) Eosinophils (%) (Auto) 1.6 % (0.0-7.0) Basophils (%) (Auto) 0.4 % (0.0-2.0) Neutrophils # (Auto) 7.8 10 ^3/uL (1.6-8.6) Lymphocytes # (Auto) 0.9 10 ^3/uL (0.4-5.4) Monocytes # (Auto) 0.5 10 ^3/uL (0-1.3) Eosinophils # (Auto) 0.1 10 ^3/uL (0-0.8) Basophils # (Auto) 0 10 ^3/uL (0-0.2) Nucleated Red Blood Cells 0.0 % Thyroid Stimulating Hormone (TSH) 41.39 uIU/mL (0.55-4.78) Total Bilirubin 0.6 mg/dL (0.2-1.0) Aspartate Amino Transferase (AST) 22 U/L (13-40) Alanine Aminotransferase (ALT) 15 U/L (7-40) Alkaline Phosphatase 61 U/L (46-116) Total Protein 6.9 g/dL (5.7-8.2) Albumin 4.2 g/dL (3.2-4.8) Test 12/26/24 08:40 12/26/24 06:18 12/26/24 05:08 Troponin I High Sensitivity 9 ng/L (</=34) Urine Color Light-yellow (Yellow) Urine Clarity Clear (Clear) Urine pH 6.0 (5.0-9.0) Urine Specific [place] 1.013 (1.001-1.035) Urine Protein 1+ (Negative) Urine Ketones 1+ (Negative) Urine Blood 1+ /uL (Negative) Urine Nitrite Negative (Negative) Urine Bilirubin Negative (Negative) Urine Urobilinogen Normal mg/dL (Negative) Urine Leukocyte Esterase Negative /uL (Negative) Urine RBC 1 /hpf (0 - 4) Urine Microscopic WBC 5 /HPF (0-5) Urine Squamous Epithelial Cells Few /hpf (<5) Urine Bacteria None seen /hpf (None Seen) Urine Mucus Few (None Seen) Urine Glucose Normal mg/dL (Normal) Urine Opiates Screen Neg (NEGATIVE) Urine Fentanyl Screen Neg (NEGATIVE) Urine Barbiturates Screen Neg (NEGATIVE) Urine Phencyclidine Screen Neg (NEGATIVE) Urine Amphetamines Screen Neg (NEGATIVE) Urine Benzodiazepines Screen Pos (NEGATIVE) Urine Cocaine Screen Neg (NEGATIVE) Urine Cannabinoids Screen Neg (NEGATIVE) Plasma/Serum Blood Alcohol < 3.0 mg/dL (<10) Other Laboratory Tests 12/31/24 06:48 12/28/24 03:26 Brief Hx & Hospital Course: This is a 44 years old female with past medical history of seizure and traumatic brain injury come to [facility] for seizure activity. The patient had seizing for 20 minutes per EMS without interruption. The patient desaturated in room air at 80% and was placed on oxygen 4 L/min via nasal cannula. The patient was given 10 mg of Versed. Oxygen saturation improved to 91% and the patient was transferred to emergency department for further evaluation. Per patient she ran out of her seizure medication for two days. She had not able to get refills from her primary care doctor yet. The patient was intubated for airway protection. Subsequently she was extubated. The patient was started on IV Keppra and subsequently switched to oral Keppra. The patient did not have any seizure activity. Saturation oxygen stable. The patient is not complain of any shortness for breath. No wheezing, no fever or chill. I am going to discharge her home today. Advised her to compliant with Keppra and I will write prescription for her Keppra for six-month until she able to get to her primary care physician. I also advised her to call her primary care physician prior to run out of seizure medication. I stressed with her the seizure is very harmful to her brain and her body. The patient verbally understand. I am going to discharge her today. Advised her to follow up with primary care physician 1-2 weeks. Follow up with neurologist per schedule. Activity as tolerated. Diet per home diet. Physical exam: HEENT: Normocephalic atraumatic pupils equal react to light and accommodation. Extraocular muscles intact, conjunctiva pink, oropharynx moist, no thrush, no exudate. Lymphatic: No lymphadenopathy Cardiovascular exam: S1, S2 was heard. No murmurs, rubs, gallops Lung: Clear on auscultation bilaterally, no wheeze, rale, rhonchi. GI: Abdominal soft, nondistended, nontenderness, positive bowel sounds. Extremity: No crepitus, cyanosis, edema. Pedal pulses present bilateral. Full range of motion. Skin: Normal turgor, no rash. Psych: Alert, oriented x3. Neurology: No focal deficits, cranial nerve II to XII grossly intact. This medical document was created using an electronic medical record system with [employer] direct computerized dictation system. Although this document has been carefully reviewed, there may still be some phonetic and typographical errors. These areas are purely typographical due to imperfections of the software programs, and do not reflect any compromise in the patient's medical care. Condition at Discharge: Stable Final Diagnosis/Problems List -breakthrough seizures -history of traumatic brain injury with hydrocephalus and placement of MUD TRUCKER shunt -history of seizure disorder -obesity -acute hypoxic respiratory failure -left lower lung atelectasis -probable sirs response without organ dysfunction -normocytic anemia -hypokalemia -hypothyroidism Discharge Disposition: Home Discharge Statement: "Patient was advised to return to the ER or call 911 if any headaches, dizziness, shortness of breath, chest pain, abdominal pain, bleeding, fevers, or worsening of medical condition. Patient was counseled about treatment plan, medications, possible side effects, patientverbalized understanding. All questions were answered to the best of my ability. This discharge took greater then 30 minutes in planning, reviewing documentation, counseling the patient, and discussing with other team members." ASSESSMENT ASSESSMENT Assessment Date of Service: January 01, 2025 Billing Provider: MAYA HUBBARD MD Common Visit Codes: [id number] DISCH DAY >30min MAYA HUBBARD MD January 01, 2025 12:48
[2025-01-01 13:00] VITALS: BP 106/70; PULSE 79; RESP 17; TEMP 96.4; O2SAT 99
[2025-01-01 15:34] VITALS: BP 96/58; PULSE 67; RESP 17; TEMP 98; O2SAT 96
== END 2025-01-01 16:40 | disposition home or self-care (01) | DRG 53 ==
LOC: EDBD 04:48 → ER 04:48 → OVERFLOW 14:50 → ICU WEST 19:20 → TELE-EAST 12-30 12:18
PROVIDERS: ADMIT Nurse Practitioner Acute Care; ATTEND Nurse Practitioner Acute Care
PROC: 0BH17EZ Insertion of Endotracheal Airway into Trachea, Via Natural or Artificial Opening (ICD-10-PCS; principal; 2024-12-26)
PROC: 5A1945Z Respiratory Ventilation, 24-96 Consecutive Hours (ICD-10-PCS; 2024-12-26)
DX: G40.801 Other epilepsy, not intractable, with status epilepticus (principal); J96.01 Acute respiratory failure with hypoxia; R65.10 Systemic inflammatory response syndrome (SIRS) of non-infectious origin without acute organ dysfunction; G93.89 Other specified disorders of brain; J98.11 Atelectasis; D64.9 Anemia, unspecified; E66.9 Obesity, unspecified; E89.0 Postprocedural hypothyroidism; Z68.32 Body mass index [BMI] 32.0-32.9, adult; E87.6 Hypokalemia; J32.2 Chronic ethmoidal sinusitis; F09 Unspecified mental disorder due to known physiological condition; Z86.73 Personal history of transient ischemic attack (TIA), and cerebral infarction without residual deficits; Z98.2 Presence of cerebrospinal fluid drainage device
CPT/HCPCS: 31500; 36415; 36556; 36600; 70450; 71045; 80048; 80053; 80307; 80320; 81001; 82805; 82962; 83735; 84132; 84443; 84484; 85025; 86850; 86900; 86901; 87070; 87081; 87205; 94002; 94003; 95819; 96365; 96375; 97110; 97116; 97530; 99291; G0378; J2470; J2704; J3480; J3490